=== PATIENT | female | born 1980 | race Caucasian/White ===

== ENCOUNTER 2020-02-22 20:32 | Emergency (ER) | payer BC, SELFPAY ==
--- NOTE | ~2020-02-22 | XR_ITS ---
EXAMINATION: XR hand RT min 3V EXAM DATE: 02/22/2020 21:25 INDICATION: Cat bite, 4th, 5th metacarpal pain and redness swelling. TECHNIQUE: Right hand frontal, lateral and oblique projections obtained and reviewed. There is no pr ior study for comparison. FINDINGS: Right metacarpal bones are unremarkable. There are no bony erosions identified. There are no acute fractures or dislocations identified. There is no subcutaneous gas. The soft tissue is unr emarkable. There are no radiopaque foreign bodies. IMPRESSION: 1. Unremarkable right hand exam. Reviewed, dictated and finalized at location A.
[2020-02-22 20:33] VITALS: BP 143/95; PULSE 77; RESP 18; TEMP 36.8; O2SAT 100
--- NOTE | 2020-02-22 21:19 | ED.WOUNDLAC ---
HPI - Wound/Laceration General Chief Complaint: Wound/Laceration Stated Complaint: right hand swelling after cat bite Time Seen by Provider: 02/22/20 20:54 Source: patient Mode of arrival: ambulatory Limitations: no limitations History of Present Illness HPI narrative: This is a 39 year old female that presents to the ER after a cat bite last night to the right hand. Reports redness, pain and swelling to the area. Denies fever. Related Data Home Medications Medication Instructions Recorded Confirmed cannabis #1 ea 02/13/20 02/13/20 ferrous sulfate 325 mg (65 mg 325 mg PO DAILY 02/13/20 02/13/20 iron) tablet fexofenadine 60 mg tablet 60 mg PO Q12H PRN 02/13/20 02/13/20 tofacitinib 5 mg tablet 5 mg PO .COMPLEX 02/13/20 02/13/20 Allergies Allergy/AdvReac Type Severity Reaction Status Date / Time peanut Allergy Mild Unverified 09/06/08 19:43 [place] Allergy Mild Uncoded 09/06/08 19:43 [place] Nut Allergy Mild Uncoded 09/06/08 19:43 SOY Allergy Mild Uncoded 09/06/08 19:43 [place] Allergy Mild Uncoded 09/06/08 19:43 Review of Systems Review of Systems: Narrative: CONSTITUTIONAL: Denies fever SKIN: Reports animal bite MUSCULOSKELETAL: Reports joint pain, and myalgia. 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 BMI 23.0-23.9, adult GERD (gastroesophageal reflux disease) History of migraine headaches Iron deficiency anemia, unspecified Mild intermittent asthma in adult without complication Nut allergy Seasonal allergies Ulcerative colitis Ulcerative colitis, left sided, chronic Surgical History Surgical History (Updated 07/31/19 @ 11:01 by Abdirahman Wren CMA) Hx of colonoscopy May 2019 Family History Family History (Updated 07/31/19 @ 11:05 by Abdirahman Wren CMA) Mother Hypertension Father Ulcerative colitis Liver failure Grandparent Hypertension Grandparent Heart failure Grandparent Diabetes mellitus Hypertension Grandparent Kidney disease Social History Social History Smoking status: Never smoker Alcohol intake: never Substance use: current Substance use type: marijuana Other substance usage details: Medical Cannabis Exam Narrative: Exam Narrative: GENERAL: Well-appearing, well-nourished, and in no acute distress. HEAD: Normocephalic, atraumatic. EYES: EOMI. EXTREMITIES: Normal range of motion. Mild edema and redness to the right 4th and 5th metacarpals, tender to palpation. Very small puncture wound to the area, without active bleeding. Normal sensation. Normal radial pulses SKIN: Warm, dry, no rash. NEURO: No focal deficits. Alert and oriented x3. PSYCH: Normal mood and affect Course Vital Signs Vital signs: Vital Signs Temperature 98.2 F 02/22/20 20:33 Pulse Rate 77 02/22/20 20:33 Respiratory Rate 18 02/22/20 20:33 Blood Pressure 143/95 H 02/22/20 20:33 Pulse Oximetry 100 02/22/20 20:33 Temperature 98.2 F 02/22/20 20:33 Pulse Rate 77 02/22/20 20:33 Respiratory Rate 18 02/22/20 20:33 Blood Pressure 143/95 H 02/22/20 20:33 Pulse Oximetry 100 02/22/20 20:33 MDM - Wound/Laceration MDM Narrative Medical decision making narrative: Patient presents to the ER for right hand pain after a cat bite last night. She is afebrile and nontoxic-appearing. Mild redness and swelling to the area. CBC is without leukocytosis. CRP is normal. Right hand x-rays without acute findings. Patient was updated on tetanus. She will be started on oral antibiotics. She is stable and felt appropriate for further outpatient evaluation. She was given warnings to return to the ER Lab Data Attestation: I reviewed the patient's lab results. Result diagrams: 02/22/20 22:09 02/22/20 22:09
[2020-02-22 22:17] LABS: Basophils Absolute Auto 0.1 K/mm3 (0.0-0.1); Basophils Percent Auto 0.5 % (0.2-1.2); Eosinophils Absolute Auto 0.4 K/mm3 (0-0.3); Eosinophils Percent Auto 3.8 % (0-4.4); Hematocrit 34.9 % (37.0-47.0); Hemoglobin 10.9 g/dL (12.0-15.0); Immature Granulocyte Absolute 0.03 K/mm3 (0.00-0.031); Immature Granulocyte Percent A 0.3 % (0-0.5); Lymphocytes Absolute Auto 2.41 K/mm3 (0.9-3.2); Lymphocytes Percent Auto 24.3 % (18.3-44.2); Mean Corpuscular HGB Conc 31.2 g/dl (32-36); Mean Corpuscular Hemoglobin 24.4 pg (26-34); Mean Corpuscular Volume 78.1 fl (80-100); Mean Platelet Volume 8.4 fl (7.4-10.4); Monocytes Absolute Auto 0.9 K/mm3 (0.1-0.6); Monocytes Percent Auto 8.9 % (2.6-8.5); Neutrophils Absolute Auto 6.2 K/mm3 (1.3-6.7); Neutrophils Percent Auto 62.2 % (45.5-73.1); Platelet Count Result 523 k/mm3 (150-375); Red Blood Count 4.47 M/mm3 (4.2-5.4); Red Cell Distribution Width 17.8 % (11.5-14.5); White Blood Count 9.9 K/mm3 (4.5-10.0)
[2020-02-22 22:32] LABS: Anion Gap 11 mmol/L (8-16); Blood Urea Nitrogen 9 mg/dL (7-17); CRP 0.7 mg/dL (<1.0); Calcium 9.6 mg/dL (8.4-10.2); Carbon Dioxide 25 mmol/L (22-30); Chloride 104 mmol/L (98-107); Estimated Glomerular Filt Rate > 60; Glucose 74 mg/dL (65-105); Potassium 3.4 mmol/L (3.4-5.0); Sodium 140 mmol/L (137-145)
[2020-02-22 22:41] LABS: Erythrocyte Sedimentation Rate 17 mm/hr (0-20)
[2020-02-22 23:00] VITALS: BP 122/78; PULSE 75; RESP 16; O2SAT 98
[2020-02-22] MEDS: TETANUS,DIPHTHERIA,AC PERTUSSIS ADULT (0.5 ML) BOOSTRIX IM (23:01)
== END 2020-02-22 23:05 | disposition home or self-care (01) ==
PROVIDERS: Physician Assistant; Emergency Provider Family Medicine; PCP Family Medicine
DX: S61.451A Open bite of right hand, initial encounter (principal); K21.9 Gastro-esophageal reflux disease without esophagitis; D50.9 Iron deficiency anemia, unspecified; J45.20 Mild intermittent asthma, uncomplicated; W55.01XA Bitten by cat, initial encounter; Z23 Encounter for immunization
CPT/HCPCS: 36415; 73130; 80048; 85025; 85652; 86140; 90471; 90714; 90715; 99283

== ENCOUNTER → 2021-06-02 10:32 | Outpatient (CLI) | payer BC, SELFPAY ==
[2021-06-02 19:53] LABS: SARS-CoV-2 RNA PCR Negative
== END ==
PROVIDERS: PCP Family Medicine; Visit Provider Family Medicine
DX: R68.89 Other general symptoms and signs (principal); Z20.822 Contact with and (suspected) exposure to COVID-19
CPT/HCPCS: C9803; U0003; U0005

== ENCOUNTER 2022-03-15 10:18 | Observation (INO) | payer BC, SELFPAY ==
--- NOTE | ~2022-03-15 | XR_ITS ---
EXAMINATION: XR hand LT min 3V DATE: 03/15/2022 11:50 INDICATION: Cat bite to left thumb and second metacarpal. TECHNIQUE: 3 views of left hand were obtained. COMPARISON: None. FINDINGS: Bone alignment is normal. No fracture. There is mild osteoarthritis of second and fifth dis debbie interphalangeal joints. IMPRESSION: 1. No fracture or radiopaque foreign body. Reviewed, dictated and finalized at location A.
[2022-03-15 10:25] VITALS: BP 138/99; PULSE 77; RESP 17; TEMP 36.4; O2SAT 100
--- NOTE | 2022-03-15 11:32 | ED.ANIMALBIT ---
HPI - Animal Bite General Chief Complaint: Animal Bite <JULIENNE Rudd Last Filed: 03/15/22 18:02> Stated Complaint: cat bite <JULIENNE Rudd Last Filed: 03/15/22 18:02> Time Seen by Provider: 03/15/22 11:03 <JULIENNE Rudd Last Filed: 03/15/22 18:02> Source: patient <JULIENNE Rudd Last Filed: 03/15/22 18:02> Mode of arrival: ambulatory <JULIENNE Rudd Last Filed: 03/15/22 18:02> Limitations: no limitations <JULIENNE Rudd Last Filed: 03/15/22 18:02> History of Present Illness HPI narrative: Patient is a 41 y/o female who presents to the ED with c/o cat bite to her left hand. Patient reports she was bit by her indoor house cat over her left thumb MCP joint Tuesday afternoon. She had a leftover prescription for her Augmentin and began this Tuesday night. She has had 4 doses thus far. Patient reports the pain, swelling, redness of her left hand/thumb has continued to worsen however. She does have difficulty moving her left thumb. She denies any fevers, nausea, vomiting. Tetanus status UTD. <JULIENNE Rudd Last Filed: 03/15/22 18:02> Related Data Home Medications: Home Medications Medication Instructions Recorded Confirmed cannabis #1 ea 02/13/20 03/15/22 ferrous sulfate 325 mg (65 mg 325 mg PO DAILY 02/13/20 03/15/22 iron) tablet fexofenadine 60 mg tablet (Idania 60 mg PO Q12H PRN allergy 02/13/20 03/15/22 Allergy) famotidine 20 mg tablet 20 mg PO BID 08/12/20 03/15/22 tofacitinib 5 mg tablet (Xeljanz) 10 mg PO BID 10/30/21 03/15/22 [id number]-Pc-xkvq-minerals 27 1 tablet PO DAILY 10/31/22 10/31/22 mg-0.4 mg tablet <Celi Vargas PA-C - Last Filed: 03/15/22 18:02> Allergies/Adverse Reactions: Allergies Allergy/AdvReac Type Severity Reaction Status Date / Time peanut Allergy Mild Anaphylaxis Verified 03/15/22 16:05 NSAIDS (Non-Steroidal Allergy Unknown Verified 03/15/22 16:05 Anti-Inflamma [place] Allergy Mild Anaphylaxis Uncoded 03/15/22 16:05 [place] Nut Allergy Mild Anaphylaxis Uncoded 03/15/22 16:05 SOY Allergy Mild Anaphylaxis Uncoded 03/15/22 16:05 [place] Allergy Mild Anaphylaxis Uncoded 03/15/22 16:05 <Celi Vargas PA-C - Last Filed: 03/15/22 18:02> Review of Systems Review of Systems: CONSTITUTIONAL: Denies fever, chills, or sweats. CARDIOVASCULAR: Denies chest pain. RESPIRATORY: Denies dyspnea. GASTROINTESTINAL: Denies nausea, vomiting. SKIN: Reports redness/swelling to the left thumb/hand. MUSCULOSKELETAL: Reports pain to left hand/left thumb. NEUROLOGIC: Denies tingling, numbness, or weakness. <Celi Vargas PA-C - Last Filed: 03/15/22 18:02> CONSTITUTIONAL: Denies night sweats. EYES: No eye pain ENT: Denies rhinorrhea CARDIOVASCULAR: Denies palpitations RESPIRATORY: Denies hemoptysis GASTROINTESTINAL: Denies hematemesis GENITOURINARY: Denies hematuria. SKIN: Denies rash MUSCULOSKELETAL: Denies myalgia. NEUROLOGIC: Denies weakness. 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
[2022-03-15 11:58] LABS: Basophils Absolute Auto 0.1 K/mm3 (0.0-0.1); Basophils Percent Auto 0.8 % (0.2-1.2); Eosinophils Absolute Auto 0.1 K/mm3 (0-0.3); Eosinophils Percent Auto 1.4 % (0-4.4); Hemoglobin 10.5 g/dL (12.0-15.0); Immature Granulocyte Absolute 0.02 K/mm3 (0.00-0.031); Immature Granulocyte Percent A 0.3 % (0-0.5); Lymphocytes Absolute Auto 1.86 K/mm3 (0.9-3.2); Lymphocytes Percent Auto 25.3 % (18.3-44.2); Mean Corpuscular HGB Conc 30.9 g/dl (32-36); Mean Corpuscular Hemoglobin 24.5 pg (26-34); Mean Corpuscular Volume 79.3 fl (80-100); Mean Platelet Volume 8.1 fl (7.4-10.4); Monocytes Absolute Auto 0.6 K/mm3 (0.1-0.6); Monocytes Percent Auto 8.3 % (2.6-8.5); Neutrophils Absolute Auto 4.7 K/mm3 (1.3-6.7); Neutrophils Percent Auto 63.9 % (45.5-73.1); Platelet Count Result 534 k/mm3 (150-375); Red Blood Count 4.29 M/mm3 (4.2-5.4); White Blood Count 7.4 K/mm3 (4.5-10.0)
[2022-03-15 12:10] LABS: Alanine Aminotransferase 16 U/L (6-35); Albumin Level 4.8 g/dL (3.5-5.1); Alkaline Phosphatase 70 U/L (38-126); Anion Gap 14 mmol/L (8-16); Aspartate Amino Transferase 25 U/L (14-36); Bilirubin,Total 0.2 mg/dL (0.2-1.3); Blood Urea Nitrogen 8 mg/dL (7-17); Calcium 9.3 mg/dL (8.4-10.2); Carbon Dioxide 25 mmol/L (22-30); Chloride 102 mmol/L (98-107); Estimated CRCL calculation 94 ml/min; Estimated Glomerular Filt Rate > 60; Glucose 89 mg/dL (65-110); Potassium 3.5 mmol/L (3.4-5.0); Sodium 141 mmol/L (137-145)
--- NOTE | 2022-03-15 13:01 | PC.NURSE ---
ERPA at bedside to discuss results and treatment plan with patient.
[2022-03-15 13:11] LABS: CRP 2.3 mg/dL (<1.0)
--- NOTE | 2022-03-15 13:17 | PC.NURSE ---
Pt unsure if she would like to be admitted. Pt would like to speak with her first. ERPA will go back and speak with patient soon for update on whether she will accept admission or leave AMA.
[2022-03-15] MEDS: AMPICILLIN SULB 3 GM/NS 100 ML 3 GM/100 ML VIAL IVPB ×3 (13:27→23:18)
[2022-03-15 13:53] LABS: Erythrocyte Sedimentation Rate 20 mm/hr (0-20)
--- NOTE | 2022-03-15 14:30 | PM.IMHP ---
H&P: HPI History of Present Illness Date/Time: 03/15/22 14:30 Chief Complaint: Left hand cat bite. Narrative: This is a very pleasant 41-year-old female with ulcerative colitis on Xeljanz who presented to the emergency department for evaluation of a cat bite to the left hand. Tuesday afternoon her indoor cat bit her on the base of the left thumb and did draw blood. She immediately washed the area with warm soapy water and applied Neosporin and a Band-Aid. She had Augmentin at home and she has taken 4 doses of that so far but unfortunately the area continues to become increasingly more swollen and red. She has difficulties bending the thumb due to the swelling and constant throbbing pain. She has perhaps some mild tingling but no overt numbness. She has not had fever, chills, or sweats and she also denies nausea and vomiting. She has not noticed red streaking up the arm or tender lymph nodes. Review of Systems Review of Systems: Twelve systems were reviewed and are negative except for as per HPI. 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 paroxysmal positional vertigo due to bilateral vestibular disorder Bilateral chronic knee pain Chronic eustachian tube dysfunction Gastro-esophageal reflux disease without esophagitis History of migraine headaches Iron deficiency anemia, unspecified Mild intermittent asthma in adult without complication Nut allergy Osteoarthritis of multiple joints Seasonal allergies Ulcerative colitis Surgical History Surgical History Hx of colonoscopy May 2019 Family History Family History Mother Hypertension Father Ulcerative colitis Liver failure Grandparent Hypertension Grandparent Heart failure Grandparent Diabetes mellitus Hypertension Grandparent Kidney disease Social History Social History Social History: Surrogate medical decision maker: Kev Bradford, spouse. Code status: Full code. Smoking status: Never smoker Alcohol intake: never Substance use: current Substance use type: marijuana Other substance usage details: Medical Cannabis Has the Lack of Transportation Kept You From Medical Appointments or From Getting Medications?: No Within the Past 12 Months, Were You Worried Whether Your Food Would Run Out Before You Got Money to Buy More?: Never True What is Your Housing Situation Today?: I Have Housing Are You Worried That in the Next 2 Months, You May Not Have Your Own Housing to Live In?: No Do You Have Trouble Paying Your Heating Or Electricity Bill?: No Do You Have Trouble Paying For Medicines?: No Are You Currently Unemployed and Looking for Work?: No Highest Level of Education Completed: High School Diploma/GED Do You Have Trouble With Childcare or the Care of a Family Member?: No Additional living arrangements comments: Lives in [place] with and 3 children. 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 [employer] Spiritual care concerns: No Meds Home Medications and Allergies Home Medications Medication Instructions Recorded Confirmed Type cannabis #1 ea 02/13/20 03/15/22 History ferrous sulfate 325 mg (65 mg 325 mg PO DAILY 02/13/20 03/15/22 History iron) tablet fexofenadine 60 mg tablet (Idania 60 mg PO Q12H PRN allergy 02/13/20 03/15/22 History Allergy) famotidine 20 mg tablet 20 mg PO BID 08/12/20 03/15/22 History albuterol sulfate 90 mcg/actuation 2 inh inhalation Q6H PRN shortness 03/30/21 03/15/22 Rx breath activated powder inhaler of breath or wheezing #1 ea tofacitinib 5 mg tablet (Xeljanz) 10 mg PO BID 10/30/21 03/15/22 History meclizine 25 mg tablet 25 mg PO TID PRN dizziness #90 tabs 11/10/21
[2022-03-15 15:13] VITALS: BP 144/101; PULSE 71; RESP 18; TEMP 37.2; O2SAT 100
[2022-03-15 15:19] LABS: SARS-CoV-2 RNA PCR Negative
--- NOTE | 2022-03-15 15:40 | ADMGEN ---
This patient, Leila Bradford, was admitted to 2 Medical Room 261-01. Patient/family oriented to hospital policies and general routines including ID bracelet, bed and alarms, visiting hours, pain management, procedures, bathroom and other care routines, personal items, smoking policy, room service/diet, and visiting hours. Information on how to activate the Rapid Response Team has been discussed. Patient/Family are encouraged to report perceived risks to care and to ask questions if they do not understand what they are told or what they should do.
[2022-03-15 16:00] VITALS: RESP 18; O2SAT 100
[2022-03-15 16:05] VITALS: BP 138/84; PULSE 70; RESP 18; TEMP 36.8; O2SAT 100
--- NOTE | 2022-03-15 19:34 | WPDCN ---
Assessment and Plan Assessment and plan (1) Cat bite of left hand with infection: Qualifiers: Encounter type: initial encounter Qualified Code(s): S61.452A - Open bite of left hand, initial encounter; L08.9 - Local infection of the skin and subcutaneous tissue, unspecified; W55.01XA - Bitten by cat, initial encounter Code(s): S61.452A - Open bite of left hand, initial encounter; L08.9 - Local infection of the skin and subcutaneous tissue, unspecified; W55.01XA - Bitten by cat, initial encounter Status: Acute (2) Immunocompromised state: Code(s): D84.9 - Immunodeficiency, unspecified Status: Acute Plan Continue IV Unasyn. Elevate the extremity above heart level. NPO tonight for possible I&D tomorrow if not satisfactorily resolving. Hospitalist to determine whether tofacitinib could be held until infectious issue is sufficiently under control to continue. HPI Data of Consult Date/Time: 03/15/22 19:34 Requesting Physician: Andreina Frank MD Primary Care Provider: Caio Kasper MD Consult Narrative Reason for consult: Cat bite to left thumb Narrative: Leila Bradford is a 41 year old female on tofacitinib for U.C. was bitten near the right 1st MPJ Tuesday by her own house cat. She started herself on Augmentin and had taken 4 doses prior to arriving at ER here today. C/O of swelling, pain to left thumb. Im not aware of lymphangitis. No leukocytosis or fever. C-RP 2.3. No drainage. With effort able to actively flex and extend MPJ though tender. She has been started on Unisyn. Review of Systems Review of Systems: CONSTITUTIONAL: Denies fever, chills, or sweats. CARDIOVASCULAR: Denies chest pain. RESPIRATORY: Denies dyspnea. GASTROINTESTINAL: Denies nausea, vomiting. SKIN: Reports redness/swelling to the left thumb/hand. MUSCULOSKELETAL: Reports pain to left hand/left thumb. NEUROLOGIC: Denies tingling, numbness, or weakness. 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 paroxysmal positional vertigo due to bilateral vestibular disorder Bilateral chronic knee pain Chronic eustachian tube dysfunction Gastro-esophageal reflux disease without esophagitis History of migraine headaches Iron deficiency anemia, unspecified Mild intermittent asthma in adult without complication Nut allergy Osteoarthritis of multiple joints Seasonal allergies Ulcerative colitis Surgical History Surgical History Hx of colonoscopy May 2019 Family History Family History Mother Hypertension Father Ulcerative colitis Liver failure Grandparent Hypertension Grandparent Heart failure Grandparent Diabetes mellitus Hypertension Grandparent Kidney disease Social History Social History Social History: Surrogate medical decision maker: Kev Dungfili, spouse. Code status: Full code. Smoking status: Never smoker Alcohol intake: never Substance use: current Substance use type: marijuana Other substance usage details: Medical Cannabis Has the Lack of Transportation Kept You From Medical Appointments or From Getting Medications?: No Within the Past 12 Months, Were You Worried Whether Your Food Would Run Out Before You Got Money to Buy More?: Never True What is Your Housing Situation Today?: I Have Housing Are You Worried That in the Next 2 Months, You May Not Have Your Own Housing to Live In?: No Do You Have Trouble Paying Your Heating Or Electricity Bill?: No Do You Have Trouble Paying For Medicines?: No Are You Currently Unemployed and Looking for Work?: No Highest Level of Education Completed: High School Di
[2022-03-15 22:00] VITALS: BP 130/79; PULSE 68; RESP 18; TEMP 36.6; O2SAT 98
[2022-03-16] MEDS: AMPICILLIN SULB 3 GM/NS 100 ML 3 GM/100 ML VIAL IVPB ×3 (05:20→17:46)
[2022-03-16 05:26] VITALS: BP 119/75; PULSE 70; RESP 18; TEMP 36.9; O2SAT 100
[2022-03-16 09:09] VITALS: BMI 23.9
[2022-03-16 09:10] VITALS: RESP 18; O2SAT 100
--- NOTE | 2022-03-16 09:44 | WPDPN ---
Progress Note: A&P Assessment and Plan (1) Cat bite of left hand with infection: Qualifiers: Encounter type: initial encounter Qualified Code(s): S61.452A - Open bite of left hand, initial encounter; L08.9 - Local infection of the skin and subcutaneous tissue, unspecified; W55.01XA - Bitten by cat, initial encounter Code(s): S61.452A - Open bite of left hand, initial encounter; L08.9 - Local infection of the skin and subcutaneous tissue, unspecified; W55.01XA - Bitten by cat, initial encounter Status: Acute Assessment and Plan: Markedly improved at Day 2 on Unisyn. Stop NPO. No plan to operate on the hand. Recommend continue Unasyn at least today. (2) Ulcerative colitis: Code(s): K51.90 - Ulcerative colitis, unspecified, without complications Status: Acute Subjective Date/time seen: 03/16/22 09:44 Interval history: Feeling better. Still cant bend it. Exam Narrative: Erythema nearly resolved. Swelling diminished. Tolerates 40* of passive ROM at MPJ with pain at 4/10. Able to keep hand elevated upon pillows. Objective Data Vital Signs Vital Signs: Vital Signs - 24 hr 03/15/22 10:25 03/15/22 15:13 03/15/22 16:05 Temperature 97.6 F 98.9 F 98.3 F Pulse Rate 77 71 70 Respiratory Rate 17 18 18 Blood Pressure 138/99 H 144/101 H 138/84 Pulse Oximetry 100 100 100 Oxygen Delivery Room Air 03/15/22 16:00 03/15/22 22:00 03/16/22 05:26 Temperature 97.9 F 98.4 F Pulse Rate 68 70 Respiratory Rate 18 18 18 Blood Pressure 130/79 119/75 Pulse Oximetry 100 98 100 Oxygen Delivery Room Air 03/16/22 09:10 Temperature Pulse Rate Respiratory Rate 18 Blood Pressure Pulse Oximetry 100 Oxygen Delivery Room Air Intake/Output Intake/Output: Intake & Output 03/13/22 03/14/22 03/15/22 03/16/22 23:59 23:59 23:59 23:59 Intake Total 1210 350 Balance 1210 350 Meds/Results Medications: Active Medications Generic Name Dose Route Start Last Admin Trade Name Freq PRN Reason Stop Dose Admin Acetaminophen 650 mg 03/15/22 19:48 Acetaminophen 325 Mg Tablet PO Q6H PRN Mild Pain (1-3) or Fever Albuterol 2 puff 03/15/22 20:05 Albuterol Sulfate (*Sp) Aerosol 1 Puff INHALATION Q6HRT PRN shortness of breath or wheezing Famotidine 20 mg 03/16/22 09:00 Famotidine 20 Mg Tablet PO Q12HR ZACH Ferrous Sulfate 324 mg 03/16/22 09:00 03/16/22 09:07 Ferrous Sulfate 324 Mg Tablet PO Not Given DAILY ZACH Ampicillin Sodium/Sulbactam Sodium 3 gm in 100 mls @ 200 mls/hr 03/15/22 19:00 03/16/22 05:50 Unasyn 3 Gm/Ns 100 Ml IVPB Infused Q6HR ZACH Infusion Loratadine 10 mg 03/15/22 19:50 Loratadine 10 Mg Tablet PO QAM PRN allergy Meclizine HCl 25 mg 03/15/22 19:50 Meclizine Hcl 25 Mg Tablet PO TID PRN dizziness Multivitamins/Calcium 1 tablet 03/16/22 09:00 03/16/22 09:07 Therapeutic Multivitamins/Minerals Tab (*Bkc) PO Not Given DAILY [facility] Radiology Results: ITS Impressions Hand X-Ray 03/15/22 11:53 IMPRESSION: 1. No fracture or radiopaque foreign body. Labs Labs: Laboratory Results - last 24 hr 03/15/22 03/15/22 03/15/22 11:46 11:46 11:46 WBC 7.4 RBC 4.29 Hgb 10.5 L Hct 34.0 L MCV 79.3 L MCH 24.5 L MCHC 30.9 L RDW 20.0 H Plt Count 534 H MPV 8.1 Immature Gran % (Auto) 0.3 Neut % (Auto) 63.9 Lymph % (Auto) 25.3 [place] % (Auto) 8.3 Eos % (Auto) 1.4 Baso % (Auto) 0.8 Lymph # (Auto) 1.86 [place] # (Auto) 0.6 Eos # (Auto) 0.1 Baso # (Auto) 0.1 Abs Immat Gran (auto) 0.02 Absolute Neuts (auto) 4.7 Absolute Nucleated RBC 0.0 Nucleated RBC % 0.0 ESR 20 Sodium 141 Potassium 3.5 Chloride 102 Carbon Dioxide 25 Anion Gap 14 BUN 8 Creatinine 0.60 L Estim Creat Clear Calc 94 Estimated GFR > 60 Glucose 89 Calcium 9.3 Total Bilirubin
[2022-03-16] MEDS: THERAPEUTIC MULTIVITAMINS/MINERALS TAB (*BKC) 1 TABLET PO (10:03)
[2022-03-16] MEDS: FAMOTIDINE 20 MG TABLET PO ×2 (10:04→20:37)
[2022-03-16] MEDS: FERROUS SULFATE 324 MG TABLET PO (10:04)
[2022-03-16 14:00] VITALS: BP 126/87; PULSE 87; RESP 20; TEMP 36.3; O2SAT 99
--- NOTE | 2022-03-16 14:21 | PM.IMPN ---
Progress Note: A&P Assessment and Plan (1) Cat bite of left hand with infection: Qualifiers: Encounter type: initial encounter Qualified Code(s): S61.452A - Open bite of left hand, initial encounter; L08.9 - Local infection of the skin and subcutaneous tissue, unspecified; W55.01XA - Bitten by cat, initial encounter Code(s): S61.452A - Open bite of left hand, initial encounter; L08.9 - Local infection of the skin and subcutaneous tissue, unspecified; W55.01XA - Bitten by cat, initial encounter Status: Acute Assessment and Plan: 03/16/2022 interval history, patient with open wound to her left hand after cat bites, was started on Unasyn Day2, patient is seen by Krishan Evans, plastic surgeon and plan was that will need I & D to clean the wound however after reexamine today the surgeon has decided that the wound is healing well and patient is able to flex and extends her 2-5 finger and having little difficulty with flexion and extension of the thumb, will continue Unasyn, will assess tomorrow and further recommendation to follow. (2) Iron deficiency anemia, unspecified: Qualifiers: Iron deficiency anemia type: unspecified iron deficiency Qualified Code(s): D50.9 - Iron deficiency anemia, unspecified Code(s): D50.9 - Iron deficiency anemia, unspecified Status: Acute (3) Immunocompromised state: Code(s): D84.9 - Immunodeficiency, unspecified Status: Acute (4) Ulcerative colitis: Code(s): K51.90 - Ulcerative colitis, unspecified, without complications Status: Acute Plan Patient presented to the emergency department today for evaluation of increasing redness and swelling of the left thumb after being bitten by her indoor cat on Tuesday by 4 doses of Augmentin. The wounds are closed and there is no drainage noted on exam. No lymphangitic streaking is appreciated. Given her immunocompromised state (she is on a DMARD) it was felt that she would benefit from IV antibiotics overnight and consultation with Dr. Wasserman and his input is greatly appreciated. She has chronic iron deficiency anemia which is stable. No acute issues with regards to ulcerative colitis. Her home medications will be reviewed and resumed as appropriate. Subjective Date/time seen: 03/16/22 14:22 HPI-Narrative: This is a very pleasant 41-year-old female with ulcerative colitis on Xeljanz who presented to the emergency department for evaluation of a cat bite to the left hand. Tuesday afternoon her indoor cat bit her on the base of the left thumb and did draw blood. She immediately washed the area with warm soapy water and applied Neosporin and a Band-Aid. She had Augmentin at home and she has taken 4 doses of that so far but unfortunately the area continues to become increasingly more swollen and red. She has difficulties bending the thumb due to the swelling and constant throbbing pain. She has perhaps some mild tingling but no overt numbness. She has not had fever, chills, or sweats and she also denies nausea and vomiting. She has not noticed red streaking up the arm or tender lymph nodes. 03/16/2022 interval history, patient with open wound to her left hand after cat bites, was started on Unasyn Day2, patient is seen by Krishan Evans, plastic surgeon and plan was that will need I & D to clean the wound however after reexamine today the surgeon has decided that the wound is healing well and patient is able to flex and extends her 2-5 finger and having little difficulty with flexion and extension of the thumb, will continue Unasyn, will assess tomorrow and further recommendation to follow. Review of Systems Review of Systems: CONSTITUTIONAL: Denies fever, chills, or sweats. CARDIOVASCULAR: Denies chest pain. RESPIRATORY: Denies dyspnea. GASTROINTESTINAL: Denies nausea, vomiting. SKIN: Reports redness/swelling to the left thumb/hand. MUSCULOSKELETAL: Reports pain to left hand/left thumb. NEUROLOGIC: Denies tingling
[2022-03-16 20:00] VITALS: PULSE 87; RESP 20; O2SAT 99
[2022-03-16 21:10] VITALS: BP 145/83; PULSE 66; RESP 18; TEMP 36.1; O2SAT 97
[2022-03-17] MEDS: AMPICILLIN SULB 3 GM/NS 100 ML 3 GM/100 ML VIAL IVPB ×2 (00:17→08:09)
[2022-03-17 04:48] VITALS: BP 119/69; PULSE 2; RESP 18; TEMP 36.2; O2SAT 98
[2022-03-17] MEDS: FERROUS SULFATE 324 MG TABLET PO (08:05)
[2022-03-17] MEDS: FAMOTIDINE 20 MG TABLET PO (08:05)
[2022-03-17] MEDS: THERAPEUTIC MULTIVITAMINS/MINERALS TAB (*BKC) 1 TABLET PO (08:05)
--- NOTE | 2022-03-17 08:08 | PC.NURSE ---
Spoke with pharmacy to clarify if it is okay to hang 0600 ampicillin as it was not hung by second shift supervisor. Pharmacy says to hang 0600 dose now and then hang 1200 dose at 1300.
--- NOTE | 2022-03-17 08:59 | WPDPN ---
Progress Note: A&P Assessment and Plan (1) Cat bite of left hand with infection: Qualifiers: Encounter type: initial encounter Qualified Code(s): S61.452A - Open bite of left hand, initial encounter; L08.9 - Local infection of the skin and subcutaneous tissue, unspecified; W55.01XA - Bitten by cat, initial encounter Code(s): S61.452A - Open bite of left hand, initial encounter; L08.9 - Local infection of the skin and subcutaneous tissue, unspecified; W55.01XA - Bitten by cat, initial encounter Status: Acute Assessment and Plan: Ok for discharge on Augmentin 7 days. Be sure she has my office phone number. F/U with Dr. Wasserman upon return from her vacation. (2) Immunocompromised state: Code(s): D84.9 - Immunodeficiency, unspecified Status: Acute Assessment and Plan: Per hospitalist. Plan Appears she had cellulitis from cat bite, but no septic joint. Capsule will be stiff for a week or so. Would do well now on oral Augmentin for 7 days. Plan to f/u with Dr Wasserman in 10-14 days, after she returns from her vacation in the [facility]. She may call if any problems arise. Time Spent With Patient Time with patient: less than 15 minutes Subjective Date/time seen: 03/17/22 08:59 Interval history: Feels better. Infected cat bite to left 1st MPJ area. Progressing well with IV Unasyn, day 3. Exam Narrative: Feels better. Can actively flex MPJ better than yesterday, but still a little stiff. Tolerates IP AROM and PROM. Tolerates MP PROM with little pain. Objective Data Vital Signs Vital Signs: Vital Signs - 24 hr 03/16/22 09:10 03/16/22 14:00 03/16/22 20:00 Temperature 97.3 F L Pulse Rate 87 87 Respiratory Rate 18 20 20 Blood Pressure 126/87 Pulse Oximetry 100 99 99 Oxygen Delivery Room Air Room Air 03/16/22 21:10 03/17/22 04:48 03/17/22 08:00 Temperature 97.0 F L 97.2 F L Pulse Rate 66 2 L Respiratory Rate 18 18 Blood Pressure 145/83 H 119/69 Pulse Oximetry 97 98 Oxygen Delivery Room Air Intake/Output Intake/Output: Intake & Output 03/14/22 03/15/22 03/16/22 03/17/22 23:59 23:59 23:59 23:59 Intake Total 1210 2590 390 Balance 1210 2590 390 Meds/Results Medications: Active Medications Generic Name Dose Route Start Last Admin Trade Name Freq PRN Reason Stop Dose Admin Acetaminophen 650 mg 03/15/22 19:48 Acetaminophen 325 Mg Tablet PO Q6H PRN Mild Pain (1-3) or Fever Albuterol 2 puff 03/15/22 20:05 Albuterol Sulfate (*Sp) Aerosol 1 Puff INHALATION Q6HRT PRN shortness of breath or wheezing Famotidine 20 mg 03/16/22 09:00 03/17/22 08:05 Famotidine 20 Mg Tablet PO 20 mg Q12HR ZACH Administration Ferrous Sulfate 324 mg 03/16/22 09:00 03/17/22 08:05 Ferrous Sulfate 324 Mg Tablet PO 324 mg DAILY ZACH Administration Ampicillin Sodium/Sulbactam Sodium 3 gm in 100 mls @ 200 mls/hr 03/15/22 19:00 03/17/22 08:09 Unasyn 3 Gm/Ns 100 Ml IVPB 200 mls/hr Q6HR ZACH Administration Loratadine 10 mg 03/15/22 19:50 Loratadine 10 Mg Tablet PO QAM PRN allergy Meclizine HCl 25 mg 03/15/22 19:50 Meclizine Hcl 25 Mg Tablet PO TID PRN dizziness Multivitamins/Calcium 1 tablet 03/16/22 09:00 03/17/22 08:05 Therapeutic Multivitamins/Minerals Tab (*Bkc) PO 1 tablet DAILY ZACH Administration Radiology Results: ITS Impressions Hand X-Ray 03/15/22 11:53 IMPRESSION: 1. No fracture or radiopaque foreign body.
--- NOTE | 2022-03-17 09:28 | PM.DS ---
DS: Admitting Diagnosis Discharge Date 03/17/2022 Admitting Diagnosis Left hand cat bite. DS: Discharge Diagnosis Discharge Diagnosis (1) Cat bite of left hand with infection: Qualifiers: Encounter type: initial encounter Qualified Code(s): S61.452A - Open bite of left hand, initial encounter; L08.9 - Local infection of the skin and subcutaneous tissue, unspecified; W55.01XA - Bitten by cat, initial encounter Code(s): S61.452A - Open bite of left hand, initial encounter; L08.9 - Local infection of the skin and subcutaneous tissue, unspecified; W55.01XA - Bitten by cat, initial encounter Status: Acute Assessment and Plan: 03/16/2022 interval history, patient with open wound to her left hand after cat bites, was started on Unasyn Day2, patient is seen by Krishan Evans, plastic surgeon and plan was that will need I & D to clean the wound however after reexamine today the surgeon has decided that the wound is healing well and patient is able to flex and extends her 2-5 finger and having little difficulty with flexion and extension of the thumb, will continue Unasyn, will assess tomorrow and further recommendation to follow. (2) Iron deficiency anemia, unspecified: Qualifiers: Iron deficiency anemia type: unspecified iron deficiency Qualified Code(s): D50.9 - Iron deficiency anemia, unspecified Code(s): D50.9 - Iron deficiency anemia, unspecified Status: Acute (3) Immunocompromised state: Code(s): D84.9 - Immunodeficiency, unspecified Status: Acute (4) Ulcerative colitis: Code(s): K51.90 - Ulcerative colitis, unspecified, without complications Status: Acute Plan Patient presented to the emergency department today for evaluation of increasing redness and swelling of the left thumb after being bitten by her indoor cat on Tuesday by 4 doses of Augmentin. The wounds are closed and there is no drainage noted on exam. No lymphangitic streaking is appreciated. Given her immunocompromised state (she is on a DMARD) it was felt that she would benefit from IV antibiotics overnight and consultation with Dr. Wasserman and his input is greatly appreciated. She has chronic iron deficiency anemia which is stable. No acute issues with regards to ulcerative colitis. Her home medications will be reviewed and resumed as appropriate. DS: Summary Hospital Course Reason for hospitalization: Left hand cat bite. Narrative: This is a very pleasant 41-year-old female with ulcerative colitis on Xeljanz who presented to the emergency department for evaluation of a cat bite to the left hand. Tuesday afternoon her indoor cat bit her on the base of the left thumb and did draw blood. She immediately washed the area with warm soapy water and applied Neosporin and a Band-Aid. She had Augmentin at home and she has taken 4 doses of that so far but unfortunately the area continues to become increasingly more swollen and red. She has difficulties bending the thumb due to the swelling and constant throbbing pain. She has perhaps some mild tingling but no overt numbness. She has not had fever, chills, or sweats and she also denies nausea and vomiting. She has not noticed red streaking up the arm or tender lymph nodes. Hospital Course: patient with open wound to her left hand after cat bites, was started on Unasyn Day2, patient is seen by Krishan Evans, plastic surgeon and plan was that will need I & D to clean the wound however after reexamine today the surgeon has decided that the wound is healing well and patient is able to flex and extends her 2-5 finger and having little difficulty with flexion and extension of the thumb, will continue Unasyn, will assess tomorrow and further recommendation to follow. ? today patient states the pain redness and swelling has improved in her hand, able to flex and extend her fingers and at wrist, patient seen by her surgeon today and agrees patient clinical symptoms have improved and can
--- NOTE | 2022-03-17 11:59 | PC.NURSE ---
On 03/17/22, the student, [Coco Lindsay], provided care and completed [facility] documentation on this patient. I have reviewed the student's documentation and agree with the findings.
== END 2022-03-17 12:40 | disposition home or self-care (01) ==
LOC: ANHED 14:10 → ANH2MED 15:48
PROVIDERS: Physician Assistant; Admitting Provider Family Medicine; Emergency Provider Emergency Medicine; PCP Family Medicine; Visit Provider Family Medicine
DX: S61.452A Open bite of left hand, initial encounter (principal); W55.01XA Bitten by cat, initial encounter; L08.9 Local infection of the skin and subcutaneous tissue, unspecified; D50.9 Iron deficiency anemia, unspecified; D84.9 Immunodeficiency, unspecified; K51.90 Ulcerative colitis, unspecified, without complications; H81.13 Benign paroxysmal vertigo, bilateral; H69.90 Unspecified Eustachian tube disorder, unspecified ear; K21.9 Gastro-esophageal reflux disease without esophagitis; Z20.822 Contact with and (suspected) exposure to COVID-19; J45.909 Unspecified asthma, uncomplicated; M15.9 Polyosteoarthritis, unspecified; Z82.49 Family history of ischemic heart disease and other diseases of the circulatory system; Z83.430 Family history of elevated lipoprotein(a); Z83.79 Family history of other diseases of the digestive system; Z83.3 Family history of diabetes mellitus; Z84.1 Family history of disorders of kidney and ureter; F12.90 Cannabis use, unspecified, uncomplicated; Z79.52 Long term (current) use of systemic steroids; Z79.899 Other long term (current) drug therapy
CPT/HCPCS: 36415; 73130; 80053; 85025; 85652; 86140; 96365; 96366; 99285; A9270; G0378; J0295; U0003; U0005

== ENCOUNTER → 2022-07-28 16:07 | Outpatient (CLI) | payer BC, SELFPAY ==
--- NOTE | ~2022-07-28 | MM_ITS ---
EXAMINATION: MM screening meghann BI w mike HISTORY: Screening mammogram TECHNIQUE: Craniocaudal and mediolateral oblique 3-D tomosynthesis images were obtained and synthetic 2-D images were generated. CAD analysis was submitted and interpreted. COMPARISON: No prior mammogram is available for comparison at this institution. BREAST PARENCHYMAL COMPOSITION: There are scattered areas of fibroglandular density. FINDINGS: There is no evidence of suspicious mass, calcification, or architectural distortion to sugg est malignancy in either breast. There has been no suspicious interval change. IMPRESSION: 1. No mammographic evidence of malignancy. 2. Recommend routine screening mammography in one year. BI-RADS Category 1: Negative Reviewed, dictated and finalized at location A.
== END ==
PROVIDERS: PCP Advanced Practice Midwife; Visit Provider Advanced Practice Midwife
DX: Z12.31 Encounter for screening mammogram for malignant neoplasm of breast (principal)
CPT/HCPCS: 77063; 77067

== ENCOUNTER 2022-12-02 14:41 | Emergency (ER) | payer BC, SELFPAY ==
[2022-12-02 14:47] VITALS: BP 133/87; PULSE 82; RESP 18; TEMP 36.7; O2SAT 100
--- NOTE | 2022-12-02 15:06 | ED.EAR ---
HPI - Ear Problem General Chief complaint: Ear Stated complaint: Rt Ear Irritation,Sore Throat Source: patient Mode of arrival: ambulatory Limitations: no limitations History of Present Illness HPI Narrative: 42 y/o female presented for c/o right ear pain for 4 days. Ear feels full and pain radiates to the top of the head. 2 days ago she started taking cefdinir which she had leftover from previous prescription, and reports improvement in symptoms today. Also taking Idania and Flonase per usual for seasonal allergies, also takes famotidine. Denies ear drainage, dizziness, n/v/d/f/c. Patient has history of severe vertigo, but has not had any symptoms yet. Also has UC and is taking Xeljanz. MD Complaint: ear pain Related Data Home Medications Medication Instructions Recorded Confirmed cannabis #1 ea 02/13/20 12/02/22 ferrous sulfate 325 mg (65 mg 325 mg PO DAILY 02/13/20 12/02/22 iron) tablet tofacitinib 5 mg tablet (Xeljanz) 10 mg PO BID 10/30/21 12/02/22 lhatmafxutcd-Ml-swyr-minerals 27 1 tablet PO DAILY 03/15/22 12/02/22 mg-0.4 mg tablet famotidine 20 mg tablet 20 mg PO QHS 05/24/22 12/02/22 fexofenadine 180 mg tablet 180 mg PO DAILY PRN Allergy 05/24/22 12/02/22 (Idania Allergy) Allergies Allergy/AdvReac Type Severity Reaction Status Date / Time peanut Allergy Mild Anaphylaxis Verified 12/02/22 14:59 NSAIDS (Non-Steroidal Allergy Unknown Verified 12/02/22 14:59 Anti-Inflamma [place] Allergy Mild Anaphylaxis Uncoded 03/15/22 16:05 [place] Nut Allergy Mild Anaphylaxis Uncoded 03/15/22 16:05 SOY Allergy Mild Anaphylaxis Uncoded 03/15/22 16:05 [place] Allergy Mild Anaphylaxis Uncoded 03/15/22 16:05 Review of Systems Review of Systems: CONSTITUTIONAL: Denies malaise, chills, or fever. EYES: Denies visual changes, redness, or discharge. ENT: Denies rhinorrhea, congestion, sinus pain, and sore throat. Reports ear pain CARDIOVASCULAR: Denies chest pain, palpitations, or edema. RESPIRATORY: Denies cough or dyspnea. GASTROINTESTINAL: Denies abdominal pain, nausea, vomiting, diarrhea SKIN: Denies rash or itching. MUSCULOSKELETAL: Denies myalgia. NEUROLOGIC: Denies headache. 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 COVID test on 06/02/2021 was negative Gastro-esophageal reflux disease without esophagitis History of migraine headaches Hyperlipidemia LDL goal <130 total cholesterol 269 with HDL excellent at 71, triglycerides 61, LDL 183 on 05/21/2022. Iron deficiency anemia, unspecified (~07/31/19) iron 37 with 8% saturation with hemoglobin 12.2 on 07/31/2019. Hemoglobin 10.5 on 03/15/2022. Hemoglobin 12.9 with iron 76 with 18% saturation and ferritin 16 with vitamin B12 619 on 05/21/2022. Mild intermittent asthma in adult without complication Nut allergy Osteoarthritis of multiple joints Otalgia of left ear (11/09/21) Otitis media Seasonal allergies Ulcerative colitis (~2007) panulcerative colitis diagnosed in 2007 and followed by GI at [facility]. sedimentation rate of 6 with CRP 1.6 . Surgical History Surgical History Hx of colonoscopy May 2019 Family History Family History Mother Hypertension Father Ulcerative colitis Liver failure Grandparent Hypertension Grandparent Heart failure Grandparen
== END 2022-12-02 15:23 | disposition home or self-care (01) ==
PROVIDERS: Emergency Provider Nurse Practitioner Family; PCP Family Medicine
DX: H92.01 Otalgia, right ear (principal); K21.9 Gastro-esophageal reflux disease without esophagitis; E78.5 Hyperlipidemia, unspecified; J45.909 Unspecified asthma, uncomplicated; M15.9 Polyosteoarthritis, unspecified; D50.9 Iron deficiency anemia, unspecified; Z86.16 Personal history of COVID-19
CPT/HCPCS: 99213; G0463

== ENCOUNTER 2024-04-07 10:04 | Outpatient (CLI) | payer BC, SELFPAY ==
--- NOTE | ~2024-04-07 | MM_ITS ---
EXAMINATION: MM screening meghann BI w mike HISTORY: Screening mammogram TECHNIQUE: Craniocaudal and mediolateral oblique 3-D tomosynthesis images were obtained and synthetic 2-D images were generated. CAD analysis was submitted and interpreted. COMPARISON: 07/28/2022 bilateral screening mammogram BREAST PARENCHYMAL COMPOSITION: There are scattered areas of fibroglandular density. FINDINGS: There is no evidence of suspicious mass, calcification, or architectural distortion to sugg est malignancy in either breast. There has been no suspicious interval change. IMPRESSION: 1. No mammographic evidence of malignancy. 2. Recommend routine screening mammography in one year. BI-RADS Category 1: Negative Reviewed, dictated and finalized at location A. 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
== END 2024-04-07 10:05 | disposition home or self-care (01) ==
LOC: MICIMG 10:05
PROVIDERS: PCP Family Medicine; Visit Provider Nurse Practitioner
DX: Z12.31 Encounter for screening mammogram for malignant neoplasm of breast (principal)
CPT/HCPCS: 77063; 77067

== ENCOUNTER 2025-02-18 15:29 | Outpatient (CLI) | payer BC, SELFPAY ==
--- NOTE | 2025-02-18 15:30 | ECG_ITS ---
Test Date: 2025-02-18 15:50:34 Measurements Intervals [place] Rate: 63 P: 50 OR: 150 QRS: 24 QRSD: 99 T: 51 QT: 388 QTc: 400 Interpretive Statements SINUS RHYTHM POSSIBLE LEFT ATRIAL ENLARGEMENT DELAYED PRECORDIAL R/S TRANSITION MINIMAL Q WAVES- HIGH LATERAL LEADS BASELINE ARTIFACT- I, II, III, AVR, AVL, AVF, V1-V6 BORDERLINE ECG No previous ECG available for comparison Electronically Signed On 02-18-2025 16:17:09 CDT by Librado Parkinson D.O.
--- OUTSIDE RECORDS SUMMARY | 2025-02-18 15:59 | XMS_ITS | Clinical Summary ---
Author Organization [facility] Address [address] [place] [address] Care Team Providers Care Sisal Operator Name Role Phone Caio Kasper MD Primary Care Provider [phone] [facility],non-owned Affiliates and Associated Physician Practices is amultiple site organization consisting of ambulatory clinics and hospital sitesin [place], [place], [place] and [place]. This disclosure is being madepursuant to the Care Everywhere program and may not contain all information available regarding this patient. Last updated 18.[facility] Allergies Active Allergy Reactions Criticality Noted Date Comments Avocado Itching,Nausea and/o r Vomiting 09/14/2017 Isoflavones Itching,Rash Medium 09/17/2015 Peanut-Derived Itching 07/17/2008 Also allergic to walnuts, brazil nuts, and walnuts Soy Rash,Itching Medium 07/17/2008 Tree Nuts Urticaria Medium 08/29/2019 Walnuts, brazil nuts, pecans Wheat Bran Nausea and/or Vomiting 09/14/2017 Medications * Be aware that medications may not be up to date on this document. Alwaysverify current medications with the patient. fexofenadine (ROHINI) 180 MG tablet Take 1 (one) tablet by mouth once daily as needed Active Probiotic Product (PROBIOTIC PO) Take by mouth once daily Active Dronabinol (MEDICAL MARIJUANA) at bedtime Active Multiple Vitamins-Mineral s (WOMENS MULTIVITAMIN PO) Take by mouth once daily Active famotidine (PEPCID) 20 MG tablet Take 1 (one) tablet by mouth once daily Active PROAIR RESPICLICK 108 (90 Base) MCG/ACT INL 2 PFS PO Q 6 H PRF SOB OR WHZ 07/31/19 20 Active FERROUS GLUCONATE PO Take 1 tablet by mouth as needed (uses during period) Active VITAMIN D PO Take by mouth once daily Active meclizine (Antivert) 25 MG tablet Take 1 (one) tablet by mouth 3 times daily as needed for Dizziness Active budesonide (Entocort EC) [address] capsuleIndicatio ns:Ulcerative pancolitis (HCC) Take 3 (three) capsules by mouth once daily for 21 days, THEN 2 (two) capsules once daily for 21 days, THEN 1 (one) capsule once daily for 21 days. 126 capsule 06/07/19 25 Active Additional Information Patient not taking.Reported on 07/11/2024 risankizumab-rza a (Skyrizi) 360 MG/2.4ML SOCTIndications: Ulcerative pancolitis (HCC) Inject 2.4 mL subcutaneously Every 8 Weeks 2.4 mL 5 08/09/19 25 Active pantoprazole EC (Protonix) 40 MG tablet Take 1 (one) tablet by mouth once daily 90 tablet 1 10/30/19 25 Active Additional Information Patient taking differently:40 mg OralPRN, Reported on 11/21/2024 amLODIPine (Norvasc) 2.5 MG tabletIndication s:Essential hypertension Take 1 (one) tablet by mouth once daily 45 tablet 11/22/19 25 Active Active Problems Problem Noted Date Diagnosed Date Ulcerative colitis 08/14/2017 Overview (01/10/2018): Overview: Gi Sx 2004 Dx in 2006 treated initially with asacol/prednisone 2008 started remicade. Self DCd 10/2013 Colonoscopy 03/2012 - normal ileum, inflammation in the rectum, rest of colon was mildly erythematous. Multiple polyps in the entire colon. Path: c/w inflammatory polyps, no dysplasia. Normal TI path, random colon path normal. Chronic mild inflammation in rectum. /[id number] ESR 29 02/2015 - Established care with Dr. Bull. Claudio. Currently only on Lialda 1.2g/d. Increased to 4.8g/d 03/2015 -colonoscopy - pancolitis. TI normal. HbSag/Quant Gold neg. 05/2015 - started entvyio (missed 2 and 6 week dose, but got 0, 4, 4 week doses instead). 09/2015 - no clinical response. Adding Uceris. 06/2016 - colonoscopy with may score 2 L sided colitis with extensive pseudopolyposis 10/2016 - Vedo level 8.6, no antibody. Increased entyvio to q6 weeks. Goal level>10. Clinically doing great. Regional enteritis 06/23/2012 Overview (02/13/2015): Other and unspecified noninf ectious gastroenteritis and colitis(558.9) 05/03/2012 Encounters Date Type Department Care Team Description 02/04/2025 Travel 11/21/2024 9:30 AM CDT Office Visit [facility] [address] [place] [address] Regis Thrasher MD Ulcerative pancolitis (HCC) (Primary Dx); Essential hypertension 11/21/2024 Travel from Last 3 Months Immunizations Immunization Administration Dates Next Due INFLUENZA VACCINE, QUADR. (F LUZONE; FLULAVAL; FLUARIX; AFLURIA QUADRIVALENT; 6MO+), 0.5 ML (IIV4) 2023 PPD 11/10/2008 Family History Medical History Relation Name Comments Alcohol abuse Father 52 Cirrhosis Father 52 Ulcerative Colitis Father 52 Diabetes Maternal Aunt Asthma Mother 61 Hypertension Mother 61 Asthma Sister 29 Relation Name Status Comments Brother 34 Alive Daughter 9 Alive Father 52 Maternal Aunt Mother 61 Alive Sister 29 Alive Son 1 15 Alive Son 2 11 Alive Social History Tobacco Use Types Packs/Day Years Used Date Smoking Tobacco: Never Smokeless Tobacco: Never Tobacco Cessation:Counseling Given: Not Answered Alcohol Use Standard Drinks/Week Comments Not Currently 0 (1 standard drink = 0.6 oz pur e alcohol) maybe once a year AUDIT-C Answer Date Recorded Q1: How often do you have a drink containing alc ohol? 2-4 times a month 06/30/2022 Average Number of Drinks Not on file 023 Frequency of Binge Drinking Not on file 06/16 Comments No Sex and Gender Information Value Date Recorded Sex Assigned at Not on file Legal Sex Female 5:30 AM FLAME BURNER Gender Identity Not on file Sexual Orientation Not on file Last Filed Vital Signs Vital Sign Reading Time Taken Comments Blood Pressure 154/97 11/21/2024 10:01 AM CDT Pulse 66 11/21/2024 9:59 AM CDT Temperature 36.8 C (98.2 F) 11/21/2024 9:59 AM CDT Respiratory Rate 18 10/05/2024 11:41 AM CDT Oxygen Saturation 100% 11/21/2024 9:59 AM CDT Inhaled Oxygen Concentration - - Weight 68.9 kg (152 lb) 11/21/2024 9:59 AM CDT Height 170.2 cm (5' 7) 07/11/2024 9:53 AM FLAME BURNER Body Mass Index 23.81 07/11/2024 9:53 AM FLAME BURNER Plan of Treatment Upcoming Encounters Date Type Department Care Team (Late st Contact Info) Description 05/28/2025 9:30 AM FLAME BURNER Office Visit [facility] - Dermatology [address] [place] [phone] Dave Carson MD [address] [place] [address] 05/29/2025 10:00 AM FLAME BURNER Office Visit [facility] [address] [place] [address] Regis Thrasher MD [address] [place] [address] Health Maintenance Due Date Last Done Comments MAMMOGRAM 1980 HIV SCREENING 1995 HEPATITIS C SCREENING 04/16/1998 DTAP/TDAP/TD VACCINES (1 - Tdap) 1999 HEPATITIS B VACCINE (1 of 3 - 19+ 3-dose series) 1999 HPV VACCINE (1 - 3-dose SCDM series) 2007 DEPRESSION SCREENING 05/16/2024 COVID-19 VACCINE ( - season) 2025 INFLUENZA VACCINE (#1) 2025 2023 PAP SMEAR 04/03/2027 04/03/2024, 03/16, 08/11/2022, Additional history exists LIPID TESTING 01/09/2029 01/10/2024, 12/15, 06/11/2023, Additional history exists ZOSTER VACCINE (1 of 2) 2030 HIB VACCINE Aged Out No longer eligi ble based on patient's age to complete this topic MENINGOCOCCAL (Group B) VACCINE SHARED DECISION-MAKING Aged Out No longer eligible based on patient's age to complete this topic MENINGOCOCCAL GROUPS A/C/Y/W VACCINE Aged Out No longer eligible based on patient's age to complete this topic PNEUMOCOCCAL VACCINE Aged Out No long er eligible based on patient's age to complete this topic Goals Goal Patient Goal Type Associated Problems Recent Progress Patient-Stated? Author Medication Management General On track( 025 10:00 AM CDT) Sheridan Stock, RN Note: Expected end date: ongoing Interventions: Take all medications as prescribed Procedures Procedure Name Priority Date/Time Associated Diagnosis Comments LIPID PROFILE 01/10/2024 8:53 AM CDT from Last 3 Months or Most Recently Relevant to Health Maintenance Results * (ABNORMAL) LIPID PROFILE (01/10/2024 8:53 AM CDT) Cholesterol 225(H) <200 mg/dL [facility] HDL Cholesterol 65 > OR = 50 mg/dL [facility] Triglycerides 65 <150 mg/dL [facility] LDL Calculated 144(H) mg/dL (calc) [facility] Comment: Reference range: <100 Desirable range <100 mg/dL for primary prevention; <70 mg/dL for patients with CHD or diabetic patients with > or = 2 CHD risk factors. LDL-C is now calculated using the Cammie calculation, which is a validated novel method providing better accuracy than the Friedewald equation in the estimation of LDL-C. Dante MARCH et al. ANGELLA. 2013;310(19): 6644-1875 (http://education.Evolv.[employer]/faq/CNL189) CHOL/HDLC RATIO 3.5 <5.0 (calc) [facility] Non HDL Cholesterol 160(H) <130 mg/dL (calc) [facility] Comment: For patients with diabetes plus 1 major ASCVD risk factor, treating to a non-HDL-C goal of <100 mg/dL (LDL-C of <70 mg/dL) is considered a therapeutic option. Test Performed at: [email or web address] [id number] JANESSA MCDONALD MD 01/10/2024 8:53 AM CDT 01/10/2024 8:53 AM CDT Indira Brown CHANGE CONTROL ANALYST-[facility] - CHEMISTRY ORDERABLES Final Result Performing Organization Address City/State/[facility] Co de Phone Number [address] [address] from Last 3 Months or Most Recently Relevant to Health Maintenance Insurance [facility] Address: [facility] [id number] [place] [address] [facility] Advance Directives Documents on File Type Date Recorded Patient Health Advocate Expl anation Adv Directive/Living Will/POA 04/28/2010 10:47 PM * Full Code (Latest Code Status on File) Date Activated Date Inactivated Comments 07/17/2008 9:44 PM 07/21/2008 3:44 AM Care Teams Sisal Operator Relationship Specialty Start Date End Date Caio Kasper MD [address] [place] [address] PCP - General Family Medicine 08/29/19
--- OUTSIDE RECORDS SUMMARY | 2025-02-18 15:59 | XMS_ITS | Data Portability ---
Author Organization [facility] Address [address] [place] [address] Care Team Providers Care Director Supply Name Role Phone MENDY GRUBBS Primary Care Provider [phone] Assessment Encounter Date Assessment Date Assessment LastModified by Organization Details LastModified Time 04/03/2024 04/03/2024 Annual gynecological exam performed. Patient will come back in a year unless there are new symptoms. [email or web address] Not available 04/03/2024 11:48:45 Plan of Treatment Reminders Order Date Submit Date Provider Last Modified By Organization Details Last Modified Time Details Appointments SURG MISC 2024 09:30A Krys LARA MD Not available Not available Not available SURG POST OP 2024 09:30A Krys LARA MD Not available Not available Not available Lab [email or web address], serum 2024 025 [facility] (Lab), [address], [place], [address], 01/21/2025 17:07:35 17-hydrox yprogestDONG morse, serum 2024 025 [facility] (Lab), [address] [place], [address], 01/17/2025 05:59:31 dhea-sulf ate, serum 2024 025 [facility] (Lab), [address], [place], [address], 01/17/2025 05:59:29 estradiol , serum 2024 025 [facility] (Lab), [address], [place], [address], 01/17/2025 05:59:29 FSH (follicle -stimulat ing hormone), serum 2024 025 [facility] (Lab), [address], [place], [address], 01/17/2025 05:59:31 HbA1c (hemoglob in A1c), blood 2024 025 [facility] (Lab), [address], [place], [address], 01/17/2025 05:59:31 lh (luteiniz ing hormone), serum 2024 025 [facility] (Lab), [address], [place], [address], 01/17/2025 05:59:30 progester one, serum 2024 025 [facility] (Lab), [address] [place], [address], 01/17/2025 05:59:30 prolactin , serum 2024 025 [facility] (Lab), [address] [place], [address], 01/17/2025 05:59:30 shbg (sex hormone-b inding globulin) , serum 2024 025 [facility] (Lab), [address] [place], [address], 01/17/2025 05:59:29 TSH, serum or plasma 2024 025 [facility] (Lab), [address] [place], [address], 01/17/2025 05:59:29 testoster one free/test osterone total, ratio, serum 2024 025 [facility] (Lab), [address], [place], [address], 01/17/2025 05:59:31 test, urine 2024 025 [facility], [facility] [address], [place], [address], 12/31/2024 14:04:59 dhea-sulf ate, serum 2023 024 [facility] (Lab), [address], [place], [address], 04/07/2024 13:33:48 hormone panel, serum or plasma 2023 024 [facility] (Lab), [address], [place], [address], 04/07/2024 13:33:48 progester one, serum 2023 024 [facility] (Lab), [address], [place], [address], 04/07/2024 13:33:47 prolactin , serum 2023 024 [facility] (Lab), [address], [place], [address], 04/07/2024 13:33:47 shbg (sex hormone-b inding globulin) , serum 2023 024 [facility] (Lab), [address], [place], [address], 04/07/2024 13:33:48 TSH, serum or plasma 2023 024 [facility] (Lab), [address], [place], [address], 04/07/2024 13:33:48 testoster one free/test osterone total, ratio, serum 2023 024 [facility] (Lab), [address], [place], [address], 04/07/2024 13:33:49 Referral None recorded. Procedures None recorded. Surgeries salpingec deyvi, laparosco pic (SURG) 2024 025 [email or web address] [facility], [address], [place], [address], 01/17/2025 14:50:32 oophorect neville (SURG) 2024 025 [email or web address] [facility], [address], [place], [address], 01/17/2025 14:52:18 hysterosc opy, surgical, with biopsy of endometri um and/or polypecto my (SURG) 2024 025 [email or web address] [facility], [address], [place], [address], 01/17/2025 14:48:06 hysterosc opy, with endometri al ablation (SURG) [address], [address], [place], [address], 01/17/2025 14:47:12 Imaging US, pelvis 2024 025 [email or web address], [place], [address], 01/03/2025 23:26:41 US, transvagi nal 2024 025 [email or web address], [place], [address], 01/03/2025 23:26:41 US, pelvis 2023 024 [email or web address] [place], [address], [place], [address], 04/04/2024 21:16:39 US, transvagi nal [email or web address], [address], [place], [address], 04/04/2024 21:16:39 US, pelvis, complete 2023 024 [facility], [address], [place], [address], 10/07/2024 05:01:06 MAMMO, screening , digital, bilateral 2023 024 [facility], [address], [place], [address], 04/09/2024 07:39:03 Medication Orders spironola ctone 100 mg tablet 2024 025 [id number], [address], [place], [place], [id number], 01/17/2025 11:56:53 Patient TargetsNo targets recorded. Patient InstructionsNo instructions recorded. Reason for Referral None Reported. Results Created Date Observation Date Name Description Value Unit Range Abnormal Flag Note LastModifiedBy Organization Detail LastModifiedTime 04/03/20 24 04/03/2024 PROLA CTIN prolactin, total 7.02 NG/mL 4.79-2 3.30 This assay was perfo rmed using [employer] ratio n reage nts and test kits. Value s obtai jerri with other assay metho ds or kits canno t be used inter luz eably . Not Available [facility] (Lab) [address], [place], [address], 04/07/2024 13:33:47 04/03/20 24 04/03/2024 PROGE STERO NE progesterone 17.30 NG/mL This assay was perfo rmed using [employer] ratio n reage nts and test kits. Value s obtai jerri with other assay metho ds or kits canno t be used inter [facility] . Femal e Proge stero ne Range s: Folli cular phase 0.06- 0.89 ng/mL Ovula tion phase 0.12- 12.00 ng/mL Lutea l phase 1.83- 23.90 ng/mL Postm enopa usal <0.05 -0.13 ng/mL Healt hy Pregn ant Women 1st Trime ster 11.0- 44.30 2nd Trime ster 25.40 -83.3 0 3rd Trime ster 58.70 -214. 00 Not Available [facility] (Lab) [address] [place], [address], 04/07/2024 13:33:47 04/03/20 24 04/03/2024 FSH, LH, ESTRA DIOL estradiol 141.0 pg/mL This assay was perfo rmed using [employer] ratio n reage nts and test kits. Value s obtai jerri with other assay metho ds or kits canno t be used inter [facility] . Femal e Estra diol Range s: Folli cular phase 12.4- 233 pg/mL Ovula tion phase 41.0- 398 pg/mL Lutea l phase 22.3- 341 pg/mL Postm enopa usal <5-13 8 pg/mL Healt hy Pregn ant Women 1st Trime ster 154-3 243 pg/mL 2nd Trime ster 1561- 40392 pg/mL 3rd Trime ster 8525- >3000 0 pg/mL Not Available [facility] (Lab) [address] [place], [address], 04/07/2024 13:33:48 04/03/20 24 04/03/2024 FSH, LH, ESTRA DIOL FSH 1.1 mIU/m L This assay was perfo rmed using [employer] ratio n reage nts and test kits. Value s obtai jerri with other assay metho ds or kits canno t be used inter [facility] . Femal es Folli cular : 3.5-1 2.5 mIU/m L Ovula tion: 4.7-2 1.5 mIU/m L Lutea l: 1.7-7 .7 mIU/m L Postm enopa use: 25.8- 134.8 mIU/m L Not Available [facility] (Lab) [address] [facility], [place], [address], 04/07/2024 13:33:48 04/03/20 24 04/03/2024 FSH, LH, ESTRA DIOL LH 1.7 mIU/m L This assay was perfo rmed using [employer] ratio n reage nts and test kits. Value s obtai jerri with other assay metho ds or kits canno t be used inter [facility] . Femal es Mid-F ollic ular: 2.4-1 2.6 mIU/m L Mid-C ycle: 14.0- 95.6 mIU/m L Mid-L uteal : 1.0-1 1.4 mIU/m L Postm enopa use: 7.7-5 8.5 mIU/m L Not Available [facility] (Lab) [address] [facility], [place], [address], 04/07/2024 13:33:48 04/03/20 24 04/03/2024 DHEA SULFA TE DHEA-sulfate 270 ug/dL Femal e Range s Age(y ) Range (ug/d L) 10-15 34-28 0 15-20 65-36 8 20-25 148-4 07 25-35 99-34 0 35-45 61-33 7 45-55 35-25 6 55-65 19-20 5 65-75 9-246 > 75 12-15 4 Not Available [facility] (Lab) [address] [facility], [place], [address], 04/07/2024 13:33:48 04/03/20 24 04/03/2024 TSH, REFLE X FREE T4 TSH 2.79 uIU/m L 0.30-5 .33 Not Available [facility] (Lab) [address] [facility], [place], [address], 04/07/2024 13:33:48 04/03/20 24 04/03/2024 HUMAN SEX HORMO NE PEDRO NG GLOBU CHELSEA sex hormone binding globulin 76.5 nmole s/L 18.2-1 35.5 Not Available [facility] (Lab) [address] [facility], [place], [address], 04/07/2024 13:33:48 04/03/20 24 04/03/2024 TESTO STERO NE, FREE( DIALY SIS) AND TOTAL (LC/M S/MS) testosterone , total 38 NG/dL 2-45 For addit ional infor arcenio silveira e refer to http: //[facility] melany bob.que stdia gnost ics.c om/fa q/ Total Testo stero neLCM SMSFA Q165 (This link is being provi ded for infor darek kumar/ educa jasbir l purpo ses only. ) This test was devel oped and its catrina tical perfo rmanc e meghann cteri stics have been deter mined by [employer] ostcale s [place]. It has not been clear ed or appro zelda by the U.S. Food and Drug Admin istra tion. This assay has been valid ated pursu ant to the CLIA regul ation s and is used for clini jaleesa purpo ses. Not Available [facility] (Lab) [address] [facility], [place], [address], 04/07/2024 13:33:49 04/03/20 24 04/03/2024 TESTO STERO NE, FREE( DIALY SIS) AND TOTAL (LC/M S/MS) testosterone , free 2.7 pg/mL 0.1-6. 4 This test was devel oped and its catrina tical perfo rmanc e meghann cteri stics have been deter mined by [employer] ostic s Thanh ls [facility] [place]. It has not been clear ed or appro zelda by the U.S. Food and Drug Admin istra tion. This assay has been valid ated pursu ant to the CLIA regul ation s and is used for clini jaleesa purpo ses. Perfo rming Organ izati on Infor matio n: Site ID: AMD Name: [facility] marcelino Law ls Insti tute Addre ss: [id number] [facility] [employer] [place], [place] Direc tor: Chey Washington MD PhD Not Available [facility] (Lab) [address] [facility], [place], [address], 04/07/2024 13:33:49 04/03/20 24 04/03/2024 IMAGE GUIDE D PAP AND HPV REGAR DLESS image guided Pap, HPV regardless of Pap result SEE RESULT S BELOW CASE REPOR T: Cytol ogy Gynec ologi jaleesa Repor t Case: [id number] Autho aelxy lazar Provi rosemary: Maria Luisa Jeffers, MANAGER ATHLETICS Colle cted: 04/03 1305 Order ing Locat ion: [place] Path[facility] log[facility] Recei zelda: 04/04 0826 First Scree n: Izzy Meyer, CT Rescr een: Marisa Poole Speci men: Candiilan jha Pap - Image d, Cervi x STATE MENT OF ADEQU ACY: Satis facto ry for evalu ation Trans forma tion zone compo nent prese nt ----- ----- ----- ----- ----- ----- ----- ----- ----- ----- ----- ----- ----- ----- ----- ----- ----- ---- FINAL DIAGN OSIS: Negat brayan for Intra epith elial Hair bob or Aneta jasso (NIL) . Elect bharat thomas d by Marisa Poole on 04/13 at 2:21 PM ----- ----- ----- ----- ----- ----- ----- ----- ----- ----- ----- ----- ----- ----- ----- ----- ----- ---- HPV RESUL TS: HPV mRNA E6/E7 : No HPV mRNA Detec luiza NOTE: This high risk HPV mRNA assay detec ts fourt een high- risk HPV types (16, 18, 31, 33, 35, 39, 45, 51, 52, 56, 58, 59, 66, 68) witho ut diffe renti ation . COMME NT: This speci men was revie wed by a Cytot echno logis t and/o r Patho logis t (as indic ated in this repor t) after evalu ation using the Thinp rep Imagi ng Syste m. CLINI JALEESA INFOR MATIO N: Menst rual Statu s: LMP (if appli cable ): Clini jaleesa Histo ry/Pr eviou s Pap: Type of Neopl jayne (if appli cable ): Signi fican t Clini jaleesa Findi ngs: Other Histo ry: Hormo shyanne (if appli cable ): PAP EDUCA JASBIR L NOTE: The Pap Test is a scree yudelka test with an inher ent false negat brayan rate. Liqui d-bas ed sampl ing may decre ase, but will not elimi rachna, false negat brayan resul ts. A negat brayan resul t does not precl ude the prese nce and/o r devel opmen t of disea se, since the prese nce of abnor mal cells in the sampl e depen ds on the locat ion of the lesio n and sampl ing techn ique. Becky nued regul ar scree yudelka is the best metho d of cance r preve ntion . If repor luiza cytol ogic findi ng do not corre late with physi jaleesa and/o r histo rical findi ngs, [facility] er inves tigat ion is recom sylvia d, as clini tatiana sanon nted. Not Available [facility] (Lab) [address] [facility], [place], [address], 04/13/2024 15:25:09 01/01/20 25 12/31/2024 TSH, REFLE X FREE T4 TSH 4.11 uIU/m L 0.30-5 .33 Not Available [facility] (Lab) [address] [facility], [place], [address], 01/17/2025 05:59:28 01/01/20 25 12/31/2024 HUMAN SEX HORMO NE PEDRO NG GLOBU CHELSEA sex hormone binding globulin 83.8 nmole s/L 18.2-1 35.5 Not Available [facility] (Lab) [address] [facility], [place], [address], 01/17/2025 05:59:29 01/01/20 25 12/31/2024 DHEA SULFA TE DHEA-sulfate 268 ug/dL Femal e Range s Age(y ) Range (ug/d L) 10-15 34-28 0 15-20 65-36 8 20-25 148-4 07 25-35 99-34 0 35-45 61-33 7 45-55 35-25 6 55-65 19-20 5 65-75 9-246 > 75 12-15 4 Not Available [facility] (Lab) [address] [facility], [place], [address], 01/17/2025 05:59:29 01/01/20 25 12/31/2024 ESTRA DIOL estradiol 58.9 pg/mL This assay was perfo rmed using [employer] ratio n reage nts and test kits. Value s obtai jerri with other assay metho ds or kits canno t be used inter luz eably . Femal e Estra diol Range s: Folli cular phase 12.4- 233 pg/mL Ovula tion phase 41.0- 398 pg/mL Lutea l phase 22.3- 341 pg/mL Postm enopa usal <5-13 8 pg/mL Healt hy Pregn ant Women 1st Trime ster 154-3 243 pg/mL 2nd Trime ster 1561- 06092 pg/mL 3rd Trime ster 8525- >3000 0 pg/mL Not Available [facility] (Lab) [address] [place], [address], 01/17/2025 05:59:29 01/01/20 25 12/31/2024 PROGE STERO NE progesterone 0.42 NG/mL This assay was perfo rmed using [employer] Cor[employer] ratio n reage nts and test kits. Value s obtai jerri with other assay metho ds or kits canno t be used inter [facility] . Femal e Proge stero ne Range s: Folli cular phase 0.06- 0.89 ng/mL Ovula tion phase 0.12- 12.00 ng/mL Lutea l phase 1.83- 23.90 ng/mL Postm enopa usal <0.05 -0.13 ng/mL Healt hy Pregn ant Women 1st Trime ster 11.0- 44.30 2nd Trime ster 25.40 -83.3 0 3rd Trime ster 58.70 -214. 00 Not Available [facility] (Lab) [address] [place], [address], 01/17/2025 05:59:30 01/01/2012/31/2024 PROLA CTIN prolactin, total 7.94 NG/mL 4.79-2 3.30 This assay was perfo rmed using [employer] Cor[employer] ratio n reage nts and test kits. Value s obtai jerri with other assay metho ds or kits canno t be used inter [facility] . Not Available [facility] (Lab) [address] [place], [address], 01/17/2025 05:59:30 01/01/20 25 12/31/2024 LH (LUTE NIZIN G HORMO NE) LH 29.3 mIU/m L This assay was perfo rmed using [employer] ratio n reage nts and test kits. Value s obtai jerri with other assay metho ds or kits canno t be used inter [facility] . Femal es Mid-F ollic ular: 2.4-1 2.6 mIU/m L Mid-C ycle: 14.0- 95.6 mIU/m L Mid-L uteal : 1.0-1 1.4 mIU/m L Postm enopa use: 7.7-5 8.5 mIU/m L Not Available [facility] (Lab) [address] [place], [address], 01/17/2025 05:59:30 01/01/2012/31/2024 FSH FSH 6.6 mIU/m L This assay was perfo rmed using [employer] ratio n reage nts and test kits. Value s obtai jerri with other assay metho ds or kits canno t be used inter luz eably . Femal es Folli cular : 3.5-1 2.5 mIU/m L Ovula tion: 4.7-2 1.5 mIU/m L Lutea l: 1.7-7 .7 mIU/m L Postm enopa use: 25.8- 134.8 mIU/m L Not Available [facility] (Lab) [address], [place], [address], 01/17/2025 05:59:31 01/01/2012/31/2024 HEMOG LOBIN A1C hemoglobin A1C 5.5 % 4.0-5. 6 The Ameri can Diabe rach Assoc iatio n recom mends that a prima ry goal of thera py marquez sutherland be a HBA1C of < 7% and that physi cians shoul d reeva luate the treat ment regim en in patie nts with HBA1C value s consi stent ly > 8%. <5.7% Berna l 5.7 - 6.4% Incre ased risk for diabe rach >=6.5 % Diagn ostic of diabe rach <7.0% Goal of thera py >8.0% Actio n sugge sted Not Available [facility] (Lab) [address] , [place], [address], 01/17/2025 05:59:31 01/01/2012/31/2024 TESTO STERO NE, FREE( DIALY SIS) AND TOTAL (LC/M S/MS) testosterone , total 57 NG/dL 2-45 high For addit ional arcenio pillai e refer to http: //yokasta bob.que stdia gnost ics.c om/fa q/ Total Testo stero neLCM SMSFA Q165 (This link is being provi ded for skipr pumacharisse nal/ educa jasbir l purpo ses only. ) This test was devel oped and its catrina tical perfo rmanc e meghann cteri stics have been deter mined by [employer] s [address] [place]. It has not been clear ed or appro zelda by the U.S. Food and Drug Admin istra tion. This assay has been valid ated pursu ant to the CLIA regul ation s and is used for clini jaleesa purpo ses. Not Available [facility] (Lab) [address] [facility], [place], [address], 01/17/2025 05:59:31 01/01/20 25 12/31/2024 TESTO STERO NE, FREE( DIALY SIS) AND TOTAL (LC/M S/MS) testosterone , free 3.8 pg/mL 0.1-6. 4 This test was devel oped and its catrina tical perfo rmanc e meghann cteri stics have been deter mined by [employer] marcelino s Thanh ls [facility] [place]. It has not been clear ed or appro zelda by the U.S. Food and Drug Admin istra tion. This assay has been valid ated pursu ant to the CLIA regul ation s and is used for clini jaleesa purpo ses. Perfo rming Organ izati on [facility] bartholomewcharisse n: Site ID: AMD Name: Jenn Hans[employer] ls Insti wil Addre ss: [id number] [email or web address] [place], [place] Direc tor: Chey Washington MD PhD Not Available [facility] (Lab) [address] [place], [address], 01/17/2025 05:59:31 01/01/20 25 12/31/2024 17-OH PROGE STERO NE 17-hydroxypr ogesterone, lc/MS/MS 42 NG/dL Adult Femal e Refer ence Range s for 17-Hy droxy proge stero ne: Pre-M enopa usal Mid Folli cular : 23-10 2 ng/dL Pre-M enopa usal Surge : 67-34 9 ng/dL Pre-M enopa usal Mid Lutea l: 139-4 31 ng/dL Postm enopa usal Phase : < or = 45 ng/dL Pregn luz marina: First Trime ster: 78-45 7 ng/dL Secon d Trime ster: 90-35 7 ng/dL Third Trime ster: 144-5 78 ng/dL This test was devel oped and its catrina tical perfo rmanc e meghann cteri stics have been deter mined by [employer] marcelino s. It has not been clear ed or appro zelda by the FDA. This assay has been valid ated pursu ant to the CLIA regul ation s and is used for clini jaleesa purpo ses. Perfo rming Organ izati on Infor matio n: Site ID: [id number] Name: [employer] marcelino lozada/Barrie aguirre [address] [place] , Addre ss: [id number] [facility] [place] [phone] Direc tor: Abril bianchi MD,Ph D,RINA Not Available [facility] (Lab) [address], [place], [address], 01/17/2025 05:59:31 01/01/20 25 12/31/2024 pregn luz marina test, urine HCG negati ve Not Available [place] [address], [place], [address], 12/31/2024 14:04:51 01/18/20 25 01/17/2025 OVA 1 scan result See Viktoria sutherland Result Not Available [facility] (Lab) [address], [place], [address], 01/24/2025 09:48:13 04/04/20 24 04/04/2024 US, pelvi s No observ ation record ed. [email or web address] [place] [address], [place], [address], 04/04/2024 18:06:37 04/04/20 24 04/04/2024 US, trans vagin al No observ ation record ed. [email or web address] [place] [address], [place], [address], 04/04/2024 18:06:45 04/04/20 24 04/04/2024 US, pelvi s No observ ation record ed. [email or web address], [place], [address], 04/18/2024 15:05:22 04/09/20 24 04/07/2024 MAMMO , scree yudelka, digit al, bilat eral No observ ation record ed. [facility] [address], [place], [address], 04/10/2024 11:00:46 01/04/20 25 01/03/2025 US, pelvi s No observ ation record ed. [email or web address], [place], [address], 01/03/2025 14:28:53 01/04/20 25 01/03/2025 US, pelvi s No observ ation record ed. [facility] [address], [place], [address], 01/03/2025 14:05:13 01/04/20 25 01/03/2025 US, trans vagin al No observ ation record ed. [facility] [address], [place], [address], 01/03/2025 14:05:22 01/04/20 25 01/03/2025 US, pelvi s No observ ation record ed. [address], [place], [address], 01/17/2025 12:33:51 Result Notes None recorded. Problems Name Problem SNOMED Code Status Onset Date Resolution Date Notes Provider Name and Address Organization Details Recorded Time Adult health examinat ion Completed 201407/15/2021 ROUTINE MEDICAL EXAM;Pierce rded Elsewhere : No Locati on: [facility] So urce: EHR Chron ic: N Practic e ID: [id number] Bill able Time: 11:15:00 AM Shantal huffman [facility] 2 14:30:20 Speciali zed medical examinat ion Completed 201407/15/2021 Gynecolog ical Examinati on;Record ed Elsewhere : No Locati on: [facility] So urce: EHR Chron ic: N Practic e ID: [id number] Bill able Time: 11:15:00 AM Shantal huffman [facility] 2 14:30:27 Screenin g for malignan t neoplasm of cervix Completed 201407/15/2021 Pap Smear;Pra ctice ID: [id number] Shantal huffman [facility] 2 14:30:17 Finding of regulari ty of menstrua l cycle Completed 201507/15/2021 Irregular bleeding; Recorded Elsewhere : No Locati on: [facility] So urce: EHR Chron ic: N Practic e ID: [id number] Bill able Time: 03:30:00 PM Shantal huffman [facility] 2 14:30:19 Procedur e by method Completed 201507/15/2021 Encounter for other general counselin g and advice on contracep tion;Pierce rded Elsewhere : No Locati on: [facility] So urce: EHR Chron ic: N Practic e ID: [id number] Bill able Time: 02:15:00 PM Shantal huffman [facility] 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 [address] 14:30:[address] Concept Completed 201507/15/2021 Encntr for general adult medical exam w/o abnormal findings; Recorded Elsewhere : No Locati on: [facility] So urce: EHR Chron ic: N Practic e ID: [id number] Bill able Time: 02:15:00 PM Shantal Mosquera armida [facility] 2 14:30:22 Colitis [id number] Active 2023 Barbara Abdi [facility] 4 11:50:05 Problem Notes None recorded. Procedures Surgical History Date Name Laterality Status Provider Name and Address Organization Details Recorded Time 04/07/20 24 Date of Last Mammogram completed [facility] 12/31/2024 12:32:19 04/03/20 24 Date of Last Pap Smear completed Barbara Abdi [facility] 04/03/2024 11:50:37 06/18/19 24 Colonoscopy completed Barbaracarlos Abdi [facility] 04/03/2024 11:51:15 06/16/19 24 Date of Last Colonoscopy completed [facility] 12/31/2024 12:32:19 06/16/19 24 completed [facility] 12/31/2024 12:32:19 06/30/19 23 Colonoscopy completed [facility] 08/11/2022 16:54:15 05/16/19 18 Colonoscopy completed [facility] 08/11/2022 16:54:09 05/16/19 15 Colonoscopy completed [facility] 08/11/2022 16:53:56 05/16/19 13 Colonoscopy completed [facility] 08/11/2022 16:53:53 05/16/19 11 Colonoscopy completed [facility] 08/11/2022 16:53:49 05/16/19 08 extraction of wisdom tooth completed [facility] 08/11/2022 16:54:41 05/16/19 07 Colonoscopy completed [facility] 08/11/2022 16:53:40 Imaging Results None recorded. Procedure Notes None recorded. Medical Equipment None Reported. Allergies Allergen ID Allergen Name Allergen Category Reaction Reaction Severity Criticality Documentation Date Start Date Code Code System Note Provider Name and Address Organization Details Recorded Time 20539 peanut allergeni c extract food,medi cation Not available Not available Not available 05/02/2020 96631 8 RxNorm Shantal Mosquera [facility] 2 14:29:25 15289 almond oil food,medi cation Not available Not available Not available 05/02/2020 88809 38 RxNorm Shantal Mosquera [facility] 2 14:29:21 61900 soybean preparati on environme nt,food,m edication Not available Not available Not available 05/02/2020 62552 5 RxNorm Shantal Mosquera [facility] 2 14:29:31 33370 walnut allergeni c extract food Not available Not available Not available 05/02/2020 38493 0 RxNorm Shantal huffman, [facility] 2 14:29:32 43049 avocado allergeni c extract food Not available Not available Not available 05/02/2020 31048 2 RxNorm Shantal huffman, [facility] 2 14:29:23 38532 wheat preparati on food,medi cation Not available Not available Not available 05/02/2020 08989 52 RxNorm Shantal Mosquera [facility], [facility] 2 14:29:34 Medications Name Sig Start Date Stop Date Status Note LastModified by Organization Details LastModified Time multivita min tablet 07/15 completed Prescrib ed Elsewher e: Yes Loca tion: [facility] M odify By: tony Menard r DateTime : 09/18/19 15 11:15:00 AM Not Available Not Available Not Available prednison e 10 mg tablet 04/03 completed Not Available Not Available Not Available azithromy to 250 mg tablet 04/03 completed Not Available Not Available Not Available metoprolo l succinate ER 50 mg tablet,ex tended release 24 hr Take 1 tablet every day by oral route. active Not Available Not Available No t Available spironola ctone 100 mg tablet TAKE 1 TABLET BY MOUTH EVERY DAY active Not Available Not Available No t Available Idania 60 mg tablet take 1 tablet by oral route 2 times every day 2021 active Not Available Not Available Not Avai lable Zantac 150 mg tablet take 1 tablet by oral route 2 times every day 07/15 completed Prescrib ed Elsewher e: Yes Loca tion: [facility] M odify By: tony Menard r DateTime : 09/18/19 15 11:15:00 AM Not Available Not Available Not Available famotidin e 20 mg tablet TAKE 1 TABLET BY MOUTH TWICE DAILY active Not Available Not Available No t Available meclizine 25 mg tablet TAKE 1 TABLET BY MOUTH THREE TIMES DAILY NEEDED FOR DIZZINES S 01/17 completed Not Available Not Available Not Available Vitamin C 100 mg tablet 09/14 completed Prescrib ed Elsewher e: Yes Loca tion: [facility]hs talaver[facility] odify By: tony Menard r DateTime : 09/18/19 15 11:15:00 AM Not Available Not Available Not Available pantopraz ole 40 mg tablet,de layed release TAKE 1 TABLET BY MOUTH EVERY DAY 12/31 completed Not Available Not Available Not Available budesonid e DR - ER 3 mg capsule,d elayed,ex tended release TAKE 2 CAPSULES BY MOUTH DAILY FOR 21 DAYS THEN TAKE 1 CAPSULE BY MOUTH DAILY FOR 21 DAYS 01/17 completed Not Available Not Available Not Available cefdinir 300 mg capsule TAKE 1 CAPSULE BY MOUTH EVERY 12 HOURS 08/11 completed Not Available Not Available Not Available amoxicill in 500 mg-potass ium clavulana te 125 mg tablet TAKE 1 TABLET BY MOUTH EVERY 12 HOURS 08/11 completed Not Available Not Available Not Available Pepcid active Not Available Not Availa ble Not Available Lialda 1.2 gram tablet,de layed release take 2 tablet by oral route every day with a meal 08/11 completed Not Available Not Available Not Available Gavilyte- C 240 gram-22.7 2 gram-6.72 gram-5.84 gram oral solution 04/03 completed Not Available Not Available Not Available GaviLyte- G 236 gram-22.7 4 gram-6.74 gram-5.86 gram oral solution DRINK 1/2 OF THE BOWEL PREPARAT ION BY MOUTH AT 6 PM THE NIGHT BEFORE TEST. FINISH THE PREPARAT ION AT 4 AM THE MORNING OF COLONOSC OPY 08/11 completed Not Available Not Available Not Available B12 5,000 mcg-100 mcg sublingua l lozenge 09/14 completed Prescrib ed Elsewher e: Yes Loca tion: Rakesh talavera [facility] M odify By: tony Menard r DateTime : 09/18/19 15 11:15:00 AM Not Available Not Available Not Available Probiotic 10 billion cell capsule 07/15 completed Prescrib ed Elsewher e: Yes Loca tion: Rakesh talavera [facility] odify By: tony Menard r DateTime : 09/18/19 15 11:15:00 AM Not Available Not Available Not Available budesonid e DR-ER 9 mg tablet,de layed and extended release TAKE 1 TABLET BY MOUTH EVERY MORNING 04/03 completed Not Available Not Available Not Available ProAir RespiClic k 90 mcg/actua tion breath activated INHALE 2 PUFFS BY MOUTH EVERY 6 HOURS NEEDED FOR SHORTNES S OF BREATH OR WHEEZING active Not Available Not Available No t Available Xeljanz 10 mg tablet 12/31 completed Not Available Not Available Not Available Skyrizi 360 mg/2.4 mL (150 mg/mL) subcutane ous wearable injector active Not Available Not Available Not Available Vitals Date Recorded Body height Body mass index (BMI) Body weight Systolic And Diastolic Provider Name and Address Organization Details Last Updated DateTime 12/31/2024 165.1 cm 25.5 kg/m2 41815.63 g 136/88 mm[Hg] Salma Tiwari [facility] 12/31/2024 12:31:49 Date Recorded Body height Body mass index (BMI) Body weight Systolic And Diastolic Provider Name and Address Organization Details Last Updated DateTime 01/17/2025 165.1 cm 25.1 kg/m2 79406.45 g 159/102 mm[Hg] Madison Plaza [facility] 01/17/2025 11:17:48 Date Recorded Body height Body mass index (BMI) Body weight Systolic And Diastolic Systolic And Diastolic Provider Name and Address Organization Details Last Updated DateTime 04/03/2024 165.1 cm 25.8 kg/m2 64354.82 g 143/93 mm[Hg] 130/88 mm[Hg] Barbara Abdi [facility] 11:49:22 Social History Question Answer Notes LastModified by Organizat ion Details LastModified Time Tobacco Smoking Status Never Smoker Shantal huffman, [facility] 07/15/2021 14:40:10 Are You Blind Or Do You Have Difficulty Seeing? No Information n ot available 08/11/2022 What Is Your Level Of Caffeine Consumption? Moderate [email or web address] Information not available 12/31/2024 How Much Tobacco Do You Chew? None [email or web address] Information not available 12/31/2024 In The 14 Days Before Symptom Onset, Have You Had Close Contact With A Laboratory-confirm ed COVID-19 While That Case Was Ill? No [email or web address] Information n ot available 08/11/2022 In The 14 Days Before Symptom Onset, Have You Had Close Contact With A Person Who Is Under Investigation For COVID-19 While That Person Was Ill? No [email or web address] Information not available 08/11/2022 Have You Been To An Area Known To Be High Risk For COVID-19? No [email or web address] Information not available 08/11/2022 Are You Deaf Or Do You Have Serious Difficulty Hearing? No [email or web address] Information not available 08/11/2022 What Type Of Diet Are You Following? SPECIFIC [email or web address] Information n ot available 12/31/2024 What Is The Highest Grade Or Level Of School You Have Completed Or The Highest Degree You Have Received? [id number] Information not available 12/31/2024 Are There Any Guns Present In Your Home? No [email or web address] Information not available 12/31/2024 Have You Ever Been Counseled For Unhealthy Alcohol Use? No [email or web address] Information not available 08/11/2022 Do You Use Protection During Sex? No [email or web address] Information not available 12/31/2024 Do You Use Your Seat Belt Or Car Seat Routinely? Yes [email or web address] Information not available 08/11/2022 Do You Have Smoke And Carbon Monoxide Detectors In Your Home? Yes [email or web address] Information not available 08/11/2022 How Much Tobacco Do You Smoke? No [email or web address] Information not available 12/31/2024 Do You Use Sunscreen Routinely? Yes Information not available 08/11/2022 Has Tobacco Cessation Counseling Been Provided? No [email or web address] Information not available 08/11/2022 Do You Have Difficulty Walking Or Climbing Stairs? No [email or web address] Information not available 08/11/2022 Sex: Unknown Functional Status Question Answer Note LastModified by Organizat ion Details LastModified Time Do you use any illicit or recreational drugs? No [email or web address] Information not available 08/11/2022 Do you or have you ever used any other forms of tobacco or nicotine? No [email or web address] Information not available 08/11/2022 What is your level of alcohol consumption? None [email or web address] Information not available 12/31/2024 Are you able to walk independently without assistance or assistive devices? YESWOREST [email or web address] Information not available 08/11/2022 Are you able to care for yourself independently? 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 No [email or web address] Information not available 08/11/2022 What is your exercise level? Occasional [email or web address] Information not available 08/11/2022 Mental Status Question Answer Note LastModified by Organization D etails LastModified Time Do you feel stressed (tense, restless, nervous, or anxious, or unable to sleep at night)? [id number] [email or web address] Information not available 12/31/2024 Family History Relationship Description Onset Age of this Age Resolved Age Notes LastModified by Organization Details LastModified Time Mother Asthma Not available 0 07/15/2021 14:39:07 Mother Hypertensive disorder Not available 2021 14:39:13 Mother Anemia Not available 0 07/15/2021 14:39:22 Father Anemia [email or web address] Not available 0 07/15/2021 14:39:22 Maternal Grandmother Hypertensive disorder [email or web address] Not available 2021 14:39:30 Paternal Grandmother Hypertensive disorder [email or web address] Not available 2021 14:39:46 Maternal Aunt Hypertensive disorder [email or web address] Not available 2021 14:39:56 Medical History Condition Response Other Y Blood Transfusion N Dermatologic Disorders Y Gestational Diabetes N Anxiety Disorder Y Autoimmune disease N Arthritis N Polyps N Infertility N Acid Reflux (GERD) Y Cancer N Varicosities N Stroke N Neurologic/Epilepsy N Fibromyalgia N Headaches Y Kidney Disease N Heart Problems N Kidney or Bladder Problems N Eating Disorder N Art (IVF or FET) N Hepatitis/Liver Disease N No Past Medical History N Urinary Tract Infection N Asthma Y Trauma/Violence N Thrombophilias N Allergies (Food, seasonal, environmental ) Y Breast Cancer N Drug/Latex Allergies/Reactions Y Lung Disease N Defects or Inherited Disease N Breast Problem N Hematologic disorders N Anesthesia Complications N History of STI N Deep Vein Thrombosis N Polycystic ovary syndrome N History of abnormal pap N Endometriosis N High Cholesterol N Thyroid Problems N GI Problems Y Anemia Y Psychiatric Illness N Ovarian Cancer N Diabetes N Pulmonary (TB, Asthma) N Eczema N Abuse/Domestic Violence N Depression/ depression Y Heart Disease N Pre-Eclampsia N Hypertension Y Osteoporosis N Gynecological History Statement/Question Response Date of Last Mammogram 04/07/2024 Flow Moderate Date of LMP 10/15/2024 N Was last menstrual period normal N STIs/STDs N Date of Last Colonoscopy 06/16/2023 Desired Control Method None Abnormal Pap N On BCP's at Conception? N HPV Vaccine N Duration of Flow (days) 5 Current Control Method None Age at First Child 22 Are cycles usually normal Y Sexually Active? Y Menses Monthly N Date of DEXA bone scan Age of first menstrual cycle 14 Date of Last Pap Smear 04/03/2024 Sexual Problems? N LMP Approximate 06/16/2023 N Obstetrics History GPAL:G 3 P 3 0 0 3 Type Value Full Term 3 Living 3 Total 3 Past Encounters Encounter ID Performer Location Encounter Start Date Encounter Closed Date Diagnosis/Indication Diagnosis SNOMED-CT Code Diagnosis ICD10 Code Diagnosis IMO Codes [facility] [id number] [address] [address] 07/16/2021 10:30:35 07/16/2021 11:09:22 Gynecologic examination 36010659 Z01.419 Z11.51 Suggested Calcium with Vitamin D 1200-1500m g daily. Patient advised to get an annual flu shot in the fall and she could obtain at [facility] or [facility] clinic. Also to obtain TDap vaccinatio n if you have not had one in the last 10 years. Recommend yearly mammograms . Encouraged monthly self breast exams. Encourage safe sexual practices, to use condoms and limit partners if not already in a monogamous relationsh ip. Engage in daily exercise of low impact aerobic exercise 45-60 minutes 4-5 times weekly. Avoid tobacco and illicit drugs as well as using moderation with alcohol intake less than 1-2 8 oz beverages daily. This lifestyle behavior pattern will lead to less health conditions and longer life span. If BMI greater than 25 weight watchers or dietary consult advised. All questions have been answered. Patient appears to understand informatio n, but if you have any questions please call or respond to this email. Elevated blood-pressure reading without diagnosis of hypertension 845244230 R03.0 No history of hypertensi on. Normal at pcp 1 month ago. Will spot check and get in with pcp if ever over 140/90 (either number). Discussed diet and exercise. [id number] Kylee Polo CNM [place] [address],[facility] [place] [address] 08/11/2022 16:34:09 08/11/2022 17:00:11 Gynecologic examination 31537681 Z01.419 Screening mammography 24 955420 Z12.31 Pain of hip region 61881 002 M25.559 Pain in pelvis 33968017 R10.2 [id number] Jonathan Lara MD [place] [address],[place] [address] 08/13/2022 10:26:40 08/13/2022 11:14:46 Pain in pelvis 40874934 R10.2 [id number] GLO Koch [place] [address],[place] [address] 04/03/2024 11:24:37 04/03/2024 17:00:42 Gynecologic examination 32395485 Z01.419 WWEBC - declinedpa p updatedSTI screen declinedma mmogram order given Take Calcium with Vitamin D daily.Do monthly self breast exams.It is advised to get annual flu shot in the fall and she could obtain at [facility] or [facility] care clinic. If you haven't received the Tdap vaccine in the last 10 years you should obtain one as well.Have mammogram yearly.Eng age in regular exercise. Avoid tobacco and illicit drugs. This lifestyle behavior pattern will lead to less health conditions and longer life span. If BMI greater than 25 dietary consult advised.Qu estions have been answered. Patient appears to understand instructio ns, but if you have any further questions call or respond to this email Screening for malignant neoplasm of breast 844794051 Z12.39 Abnormal u terine bleeding 0322683649 9100 N93.9 Discussed AUB, recommende d labs and updated pelvic u/sMD f/u scheduled, precaution s discussed Time spent in visit is a total of 35 mins with at least 50% of visit consisting of counseling and review of plan of care. Pain in pelvis 88344831 R10.2 [id number] Jonathan Lara MD [place] [address],[place] [address] 04/04/2024 14:22:38 04/04/2024 15:09:39 Abnormal uterine bleeding 5351586197 9100 N93.9 R10.2 [id number] GLO Koch [place] [address],[place] [address] 12/31/2024 12:12:07 12/31/2024 14:28:00 Irregular periods 21434249 N92.6 08627 UPT (-)updated labs and pelvic u/s orderedwil l f/u with MD to review given fibroids and possible polyp noted on u/s done 04/08quest ions answered, precaution s discussed Time spent in visit is a total of 30 mins with at least 50% of visit consisting of counseling and review of plan of care. Postcoital bleeding 4888 0000 N93.0 02011 [id number] Jonathan Lara MD [place] [address],[place] [address] 01/03/2025 12:18:50 01/03/2025 13:22:39 Irregular periods 22961501 N92.6 N93.0 85601 [id number] Jonathan Lara MD [place] [address],[place] [address] 01/17/2025 10:55:47 01/17/2025 12:22:58 Female hirsutism 12688145 L68.0 25746 Mass of ovary 330055686 N83.8 983396 Endometrial polyp 565656 9347 N84.0 88695 Menorrhagia 607435060 N9 2.0 [id number] this patient is a 44 old female with menorrhagi a, enlarged vascular ovary, endometria l polyp, hirsutism, PCOS. Myomas. We discussed each of these issues. We discussed heavy vaginal bleeding treatments , etiology, natural history. We discussed endometria l polyps. We discussed detail on hirsutism and PCOS. We discussed fibroids in detail as well. I spent over 30 minutes on the patient's care in total. We agreed to move forward with hysterosco py with polypectom y and endometria l ablation. Laparoscop ic bilateral salpingect [place] and right oophorecto my. The patient understand s the procedure. The procedure was described to the patient in great detail. the patient also understand s the risks. The risks were also explained in detail. She understand s that injuries May occur during surgery. She understand s these injuries can result in hospitaliz ation, more surgery, and severe illness. She understand s there is risk of hemorrhage and infection. Health Concerns Section Related Observation LastModified by Organization Detai ls LastModified Time None Recorded Concern Status LastModified by Organization Details LastModified Time None Recorded Advance Directives Directive None Recorded Payers Insurance Date Sequence Insurance Name Policy Number Policy Buckner Covered Member ID Buckner Member ID Guarantor Name 02/18/2025 1 [facility] ([facility] [id number] Leila Bradford [id number] Leila Dungfili Notes Date Note Type Note Provider Name and Address Organization Details Recorded Time 024 text/ht ml Annual GYNReported by PatientGenitourinary symptomsFor menstrual cycle, patient reportsmenorrhagiaandbleeding lasts more than 7 days. For urinary symptoms, patient reportsno hematuriaandno incontinence. For vulva, patient reportsno genital lesion. For vagina, patient reportsnormal vaginal discharge.Breast symptomsFor breast, patient reportsno breast pain,no breast lump, andno nipple discharge.ContraceptionFor current contraception, (withdrawal).Endocrine symptomsFor sexual complaints, patient reportsno sexual complaints,no pain during intercourse, andnormal libido. For menopausal symptoms, patient reportsno menopausal symptomsandnormal vaginal lubrication.Psychological symptomsFor psychological symptoms, patient reportsno depression,no anxiety, andno pmdd.Preventative measuresFor preventive measures, patient reportsencourage self breast examination,encourage regular exercise,encourage no tobacco use, andencourage regular mammograms starting age 40.43yo WWEBC - withdrawallast pap 07/2022 : nilm, HPV (-) periods lasting 7 days, heavy, often requiring double protectionepisodes of IMBsymptoms present for 6+ monthsright sided pelvic pain on and off, cramping neg n/v/fneg flu-like symptomsneg d/c GLO Koch [address], [place], [address], [facility] 04/03/2024 15:51:32 025 text/ht ml 44yo [id number] today for irregular periodsLMP 10/2024. Previous to this periods have been heavy/painful, lasting 6-7 days. Has episodes of IMB and bleeding with IC. Pelvic u/s done 03/2024 showed fibroids and possible polyp - she was unable to attend her f/u appt for this. Last pap 03/2024 : nilm, HPV (-)SA with male partner, BC not practiced GLO Koch [address], [place], [address], [facility] 12/31/2024 14:05:43 025 text/ht ml this patient is a 44 old female with menorrhagia, enlarged vascular ovary, endometrial polyp, hirsutism, PCOS. Myomas. We discussed each of these issues. We discussed heavy vaginal bleeding treatments, etiology, natural history. We discussed endometrial polyps. We discussed detail on hirsutism and PCOS. We discussed fibroids in detail as well. I spent over 30 minutes on the patient's care in total. We agreed to move forward with hysteroscopy with polypectomy and endometrial ablation. Laparoscopic bilateral salpingectomy and right oophorectomy. The patient understands the procedure. The procedure was described to the patient in great detail. the patient also understands the risks. The risks were also explained in detail. She understands that injuries May occur during surgery. She understands these injuries can result in hospitalization, more surgery, and severe illness. She understands there is risk of hemorrhage and infection. Jonathan Lara MD [address], [place], [address], [facility] 01/17/2025 12:15:23 OBGyn Episode Ob Episode Information Episode Created Date Number of Fetuses Patient Bloodtype Patient rh Status Prepregnancy Weight lbs Domestic Partner Domestic Partner Phone Father Name Fruit Farmworker Status 07/16/19 22 1 CLOSED Fetus Data First Name Last Name Admitted to NICU Weight (g) Sex Living Outcome Pediatric Complications Fetus ID Race Codes Race Delivery Type 3713.55 7704 F Full Term [id number] Vaginal Delivery Cristopher Calculation Initial Cristopher Date Initial Exam Date Initial Exam Provider Initial Ultrasound Date Last Menstrual Period Date Ultra Sound Weeks Gestation 0 Eighteen To Twenty Week Cristopher Update Ultra Sound Date Fundal Height At Umbil Quickening Date Ultra Sound Latest Weeks Gestation Final Cristopher Confirmed By Final Cristopher Confirmed Date Final Cristopher Date Ultra Sound Latest Days Gestation 0 0 Menstrual History Last Menstrual Date Menses Monthly On Bcp Conception Prior Menses Frequency Hcg Plus Date Menarche Onset Age Delivery Information Delivery Date Delivery Type Labor Anesthesia Weeks Gestation Incision Type Labor Labor Length Hrs Delivered By Post Complications Tubal Sterilization Discharge Date Comments 9 Discharge Information Feeding Method Contraceptive Method Maternal HG B and HCT Levels Ob Episode Information Episode Created Date Number of Fetuses Patient Bloodtype Patient rh Status Prepregnancy Weight lbs Domestic Partner Domestic Partner Phone Father Name Fruit Farmworker Status 07/16/19 22 1 CLOSED Fetus Data First Name Last Name Admitted to NICU Weight (g) Sex Living Outcome Pediatric Complications Fetus ID Race Codes Race Delivery Type 3543.46 0704 M Full Term [id number] Vaginal Delivery Cristopher Calculation Initial Cristopher Date Initial Exam Date Initial Exam Provider Initial Ultrasound Date Last Menstrual Period Date Ultra Sound Weeks Gestation 0 Eighteen To Twenty Week Cristopher Update Ultra Sound Date Fundal Height At Umbil Quickening Date Ultra Sound Latest Weeks Gestation Final Cristopher Confirmed By Final Cristopher Confirmed Date Final Cristopher Date Ultra Sound Latest Days Gestation 0 0 Menstrual History Last Menstrual Date Menses Monthly On Bcp Conception Prior Menses Frequency Hcg Plus Date Menarche Onset Age Delivery Information Delivery Date Delivery Type Labor Anesthesia Weeks Gestation Incision Type Labor Labor Length Hrs Delivered By Post Complications Tubal Sterilization Discharge Date Comments 3 Discharge Information Feeding Method Contraceptive Method Maternal HG B and HCT Levels Ob Episode Information Episode Created Date Number of Fetuses Patient Bloodtype Patient rh Status Prepregnancy Weight lbs Domestic Partner Domestic Partner Phone Father Name Fruit Farmworker Status 07/16/19 22 1 CLOSED Fetus Data First Name Last Name Admitted to NICU Weight (g) Sex Living Outcome Pediatric Complications Fetus ID Race Codes Race Delivery Type 2721.55 2 M Full Term [id number] Vaginal Delivery Cristopher Calculation Initial Cristopher Date Initial Exam Date Initial Exam Provider Initial Ultrasound Date Last Menstrual Period Date Ultra Sound Weeks Gestation 0 Eighteen To Twenty Week Cristopher Update Ultra Sound Date Fundal Height At Umbil Quickening Date Ultra Sound Latest Weeks Gestation Final Cristopher Confirmed By Final Cristopher Confirmed Date Final Cristopher Date Ultra Sound Latest Days Gestation 0 0 Menstrual History Last Menstrual Date Menses Monthly On Bcp Conception Prior Menses Frequency Hcg Plus Date Menarche Onset Age Delivery Information Delivery Date Delivery Type Labor Anesthesia Weeks Gestation Incision Type Labor Labor Length Hrs Delivered By Post Complications Tubal Sterilization Discharge Date Comments 7 Discharge Information Feeding Method Contraceptive Method Maternal HG B and HCT Levels
== END 2025-02-18 15:30 | disposition home or self-care (01) ==
LOC: ANHSURGERY 15:33
PROVIDERS: PCP Family Medicine; Visit Provider Obstetrics & Gynecology
DX: I10 Essential (primary) hypertension (principal); Z01.818 Encounter for other preprocedural examination; R94.31 Abnormal electrocardiogram [ECG] [EKG]
CPT/HCPCS: 93005

== ENCOUNTER 2025-02-20 01:30 | Day surgery (SDC) | payer BC, SELFPAY ==
[2025-02-18 10:14] VITALS: BMI 25.0
--- NOTE | 2025-02-18 10:23 | PC.NURSE ---
[facility] has started construction of its new state of the art ER which will open Spring 2026. With this, we anticipate parking may be a challenge for some our surgical patients and families. Parking spaces are limited but are available for all Surgical, obstetrics, and ER patients sharing this lot. If you arrive and find you are having a hard time finding a parking space, please note that we understand the challenges, please drive around the hospital and park near Hospital Entrance 1. When you enter this entrance, you can ask a volunteer to direct or take you back to the surgical waiting area to check in. We appreciate everyone?s understanding of these expected challenges while we build for your future. Report to the Outpatient Waiting Room, entrance under the green pavilion located off [address], at time _0730_ on date _[phone]_. Planned Procedure Time: _0930_.? Time changes happen often and if your time is changed the preop area will call you the afternoon before. - You and your visitor will be asked to self-screen and do not enter if you have any COVID symptoms. Please call surgeon if you need to reschedule. - A mask is optional within the hospital at this time. Patients may have clear liquids (water, carbonated beverages, clear teas, apple juice) until 3 hours prior to surgery with a maximum of 20 ounces. - No food from midnight until time of surgery and no smoking, or chewing tobacco (or any form of nicotine). No chewing gum, candy or mints. Take only the following medications with a SIP of water on the morning of surgery: ___Albuterol if needed.__ DO NOT STOP ANY OF YOUR OTHER PRESCRIPTION MEDICATIONS PRIOR TO SURGERY EXCEPT THE FOLLOWING Hold all vitamins and supplements for 3 days per anesthesiologist. Medications to discontinue per physician Date to take last dose___Stop now.__ Please no make-up, nail russian, hairspray, perfume, deodorant, or body powder the day of surgery.? No jewelry (including any body piercings) or valuables the day of surgery, leave them at home.? Please take a shower or bath the night before, or the morning of, surgery with an antibacterial soap.? Wear comfortable, loose fitting clothing.? - Jewelry must be removed prior to entering the operating room.? Rings and piercings that are not removed may be cut off. - The hospital will not accept responsibility for valuables.? - Please leave all valuables, including medications, at home the day of surgery. If you are going home after surgery, a licensed high lift driver must drive you home.? - NO public transportation without another adult if you receive anesthesia. - We recommend that an adult stay with you for 24 hours following discharge. - We also recommend that you do not drive, make important decision, drink alcoholic beverages, or take any drugs that were not prescribed by your health care provider for at least 24 hours after your discharge time. Follow any additional instructions given to you from your surgeon. Telephone instructions given to __Leila___and asked if any additional questions and then verbalized understanding. Patient advised to call surgeon office or pre surgery nurse liaison [phone] if any additional questions.
[2025-02-20] VITALS (7 sets, daily range): BP systolic 121–145; BP diastolic 73–84; PULSE 59–67; RESP 13–16; TEMP 36.1–37.2; O2SAT 96–100
--- OUTSIDE RECORDS SUMMARY | 2025-02-20 01:39 | XMS_ITS | Clinical Summary ---
Author Organization [facility] Address [address] [place] [address] Care Team Providers Care Android Framework Developer Name Role Phone Caio Kasper MD Primary Care Provider [phone] Source Comments [facility],non-owned Affiliates and Associated Physician Practices is amultiple site organization consisting of ambulatory clinics and hospital sitesin [place], [place], [place] and [place]. This disclosure is being madepursuant to the Care Everywhere program and may not contain all information available regarding this patient. Last updated 18.[facility] Allergies Active Allergy Reactions Criticality Noted Date [...] path normal. Chronic mild inflammation in rectum. 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 Gender Identity Not on file Sexual Orientation [...] 170.2 cm (5' 7) 07/11/2024 9:53 AM CHEMICAL MACHINE TENDER Body Mass Index 23.81 07/11/2024 9:53 AM CHEMICAL MACHINE TENDER Plan of Treatment Upcoming Encounters Date Type Department Care Team (Late st Contact Info) Description 05/28/2025 9:30 AM CHEMICAL MACHINE TENDER Office Visit [facility] - Dermatology [address] [place] [id number] Dave Carson MD [address] [place] [address] 05/29/2025 10:00 AM CHEMICAL MACHINE TENDER Office Visit [facility] - GI [address] [place] [address] Regis Thrasher MD [address] [place] [address] Health Maintenance Due Date Last Done Comments [...] LDL-C. Dante MARCH et al. ANGELLA. 2013;310(19): 0374-0990 (http://education.[employer].HereOrThere/faq/JVL175) CHOL/HDLC RATIO 3.5 <5.0 (calc) [facility] Non HDL Cholesterol 160(H) <130 mg/dL (calc) [facility] Comment: For patients with diabetes plus 1 major ASCVD risk factor, treating to a non-HDL-C goal of <100 mg/dL (LDL-C of <70 mg/dL) is considered a therapeutic option. Test Performed at: [facility] [address] JANESSA MCDONALD MD 01/10/2024 8:53 AM CDT 01/10/2024 8:53 AM CDT Indira Brown CYCLE COUNTER-FORENSIC PSYCHOLOGIST LAB - CHEMISTRY ORDERABLES Final Result Performing Organization Address City/State/[facility] Co de Phone Number [address] [address] from Last 3 Months or Most Recently Relevant to Health Maintenance Insurance [facility] Advance Directives Documents on File Type Date Recorded Patient Section Leader Expl anation Adv Directive/Living Will/POA 04/28/2010 10:47 PM * Full Code (Latest Code Status on File) Date Activated Date Inactivated Comments 07/17/2008 9:44 PM 07/21/2008 3:44 AM Care Teams Android Framework Developer Relationship Specialty Start Date End Date Caio Kasper MD [address] [place] [address] PCP - General Family Medicine 08/29/19
[2025-02-20] MEDS: LACTATED RINGERS 1,000 ML 30 ML IV CONT ×2 (08:00→09:55)
--- NOTE | 2025-02-20 08:07 | PM.IMHP ---
H&P: HPI History of Present Illness Date/Time: 02/20/25 08:07 Chief Complaint: Menorrhagia Narrative: This patient is a 44-year-old female with menorrhagia, enlarged vascular ovary, endometrial polyp, hirsutism, PCOS. Myomas.?We agreed to move forward with hysteroscopy with polypectomy and endometrial ablation. Laparoscopic bilateral salpingectomy and right oophorectomy. She understands risks, benefits, and alternatives. She has completed informed consent process is ready to proceed. The patient understands the details of the procedure. The procedure has been explained in detail. She understands the risks. She understands that injuries may occur that result in hospitalization, more surgery, and severe illness. She understands risk of hemorrhage and infection. She denies any chest pain or shortness of breath. She denies any nausea, vomiting, fever, chills. Review of Systems Review of Systems: All systems reviewed & are unremarkable except as noted in HPI and below Constitutional: Constitutional: Denies chills, Denies fatigue, Denies fever(s) and Denies weakness Eyes: Eyes: Denies blurry vision, Denies change in vision, Denies loss of peripheral vision, Denies loss of vision, Denies other visual disturbances and Denies eye pain ENT: Denies vertigo, Denies dizziness, Denies hearing loss, Denies mouth pain, Denies nasal obstruction, Denies neck mass and Denies neck pain Cardiovascular: Cardiovascular: Denies chest pain, Denies diaphoresis, Denies syncope, Denies leg edema and Denies dyspnea Respiratory: Respiratory: Denies chest congestion, Denies cough, Denies hemoptysis, Denies dyspnea and Denies wheezing Gastrointestinal: Gastrointestinal: Denies abdominal pain, Denies constipation, Denies diarrhea, Denies nausea and Denies vomiting Genitourinary: Genitourinary: Denies hematuria, Denies change in libido, Denies nocturia, Denies genital lesions, Denies flank pain and Denies urinary urgency Musculoskeletal: Musculoskeletal: Denies abnormal gait, Denies back pain, Denies myalgias, Denies arthralgias, Denies joint swelling, Denies muscle weakness and Denies neck pain Integumentary/Breasts: Skin/Breast: Denies swelling, Denies breast pain, Denies breast mass, Denies dry skin, Denies nipple discharge, Denies unusual bruising and Denies jaundice Neurologic: Denies Neuro-related abnormal movements, Denies Abnormal speech present, Denies abnormal gait, Denies behavioral changes, Denies confusion, Denies vertigo, Denies dizziness, Denies syncope, Denies loss of vision, Denies memory loss, Denies convulsions and Denies weakness Psychiatric: Psychiatric: Denies abnormal sleep pattern, Denies behavioral changes, Denies change in libido, Denies confusion, Denies depression, Denies anhedonia and Denies memory loss Endocrine: Endocrine: Reports no additional endocrine complaints, Denies change in libido and Denies fatigue Hematologic/Lymphatic: Hematologic/Lymphatic: Reports no additional hematologic/lymphatic complaints Allergic/Immunologic: Allergic/Immunologic: Reports no additional allergic/immunologic complaints and Denies wheezing PMFSH Past Medical History Medical History (Updated 02/20/25 @ 08:10 by Jonathan Lara MD) Essential hypertension Overweight (BMI 25.0-29.9) COVID-19 (03/30/22) vaccinated and mild symptoms Breast cancer screening by mammogram normal mammogram 04/07/2024. Acute bronchitis Elevated liver enzymes AST 39, ALT 56 on 05/21/2022. AST 12, ALT 12 on 06/30/2022. AST 16, ALT 13 on 06/11/2023. Restless legs syndrome iron 76 with 18% saturation and ferritin 16 with goal greater than 75 on 05/21/2022. Hyperlipidemia LDL goal <130 total cholesterol 269 with HDL excellent at 71, triglycerides 61, LDL 183 on 05/21/2022. Cholesterol 230, HDL 78, triglycerides 62, LDL 137 with ratio of 2.9 on 06/11/2023. Chronic low back pain with right-sided sciatica (~11/2021) Cat bite of left hand with infection Chronic eustachian tube dysfunction Otalgia of left ear (11/09/21) Otitis media Bilateral chronic knee pain BMI 24.0-24.9, adult Exposure to COVID-19 virus (~05/31/21) children with COVID. COVID test on 06/02/2021 was negative BMI 22.0-22.9, adult Benign paroxysmal positional vertigo due to bilateral vestibular disorder Osteoarthritis of multiple joints Gastro-esophageal reflux disease without esophagitis EGD June, with esophagitis. Iron deficiency anemia, unspecified (~07/31/19) iron 37 with 8% saturation with hemoglobin 12.2 on 07/31/2019. Hemoglobin 10.5 on 03/15/2022. Hemoglobin 12.9 with iron 76 with 18% saturation and ferritin 16 with vitamin B12 619 on 05/21/2022. Hemoglobin 8.8, hematocrit 32.3, platelets 663 with MCV 76 on 06/11/2023. Mild intermittent asthma in adult without complication BMI 23.0-23.9, adult Nut allergy Allergy to soy protein History of migraine headaches Seasonal allergies Ulcerative colitis (~2007) panulcerative colitis diagnosed in 2007 and followed by GI at [facility]. sedimentation rate of 6 with CRP 1.6 . colonoscopy June, stable. CRP 0.8 on 06/11/2023. Surgical History Surgical History Hx of colonoscopy May 2019 Family History Family History Mother Hypertension Father Ulcerative colitis Liver failure Grandparent Hypertension Grandparent Heart failure Grandparent Diabetes mellitus Hypertension Grandparent Kidney disease Social History Social History Social History: Surrogate medical decision maker: Kev Bradford, spouse. Code status: Full code. Smoking status: Never smoker Alcohol intake: never Substance use: current Substance use type: marijuana Other substance usage details: Medical cannabis daily Lack of Transportation: No Lack of Food: Never True Current Housing: I Have Housing Concerned About Future Housing: No Difficulty Paying Gas/Electric Bills: No Difficulty Paying for Meds: No Currently Unemployed: No Education: High School Diploma/GED Difficulty w/ Childcare or Family Care: No Living arrangements: with family Additional living arrangements comments: Lives in [place] with and 3 children. 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 Spiritual care concerns: No Meds Home Medications and Allergies Home Medications ?Medication ?Instructions ?Recorded ?Confirmed ?Type cannabis #1 ea 02/13/20 02/18/25 History ferrous sulfate 325 mg (65 mg 325 mg PO DAILY 02/13/20 02/18/25 History iron) tablet albuterol sulfate 90 mcg/actuation 2 inh inhalation Q6H PRN shortness 03/30/21 02/18/25 Rx breath activated powder inhaler of breath or wheezing #1 ea [id number]-Lb-dkxq-minerals 27 1 tablet PO DAILY 03/15/22 02/18/25 History mg-0.4 mg tablet fexofenadine 180 mg tablet 180 mg PO DAILY PRN Allergy 05/24/22 02/18/25 History (Idania Allergy) famotidine 20 mg tablet 20 mg PO BID #60 tabs 12/25/24 02/18/25 Rx metoprolol succinate 50 mg 50 mg PO DAILY #30 tabs 12/25/24 02/18/25 Rx tablet,extended release 24 hr risankizumab-rzaa 180 mg/1.2 mL 180 mg subcut . Q 8 week 12/25/24 02/18/25 History (150 mg/mL) subcut wearable injector (Bobyrizi) spironolactone 100 mg tablet 100 mg PO DAILY 02/18/25 02/18/25 History Allergies Allergy/AdvReac Type Severity Reaction Status Date / Time peanut Allergy Mild Anaphylaxis Verified 02/18/25 10:11 NSAIDS (Non-Steroidal Allergy Unknown Verified 02/18/25 10:11 Anti-Inflamma [place] Allergy Mild Anaphylaxis Uncoded 03/15/22 16:05 [place] Nut Allergy Mild Anaphylaxis Uncoded 03/15/22 16:05 SOY Allergy Mild Anaphylaxis Uncoded 03/15/22 16:05 [place] Allergy Mild Anaphylaxis Uncoded 03/15/22 16:05 Exam Const: General: cooperative, healthy appearing, comfortable and no acute distress Orientation/consciousness: oriented to person, oriented to place and oriented to time HENMT: Head: normal to inspection Ears: external ears normal Face/Nose/Sinus: Normal external nose present and normal facial exam Face and sinus: normal facial exam Eyes: General: appearance normal, both eyes and all related structures Neck: Neck: normal visual inspection, trachea midline and supple Resp: Auscultation: clear to auscultation bilaterally, no crackles, no rales, no rhonchi and no wheezes Cardio: Rate: regular rate Rhythm: regular rhythm Heart sounds: no click, no murmurs and no rubs GI: GI Palp: No abdominal tenderness, No Soft to palpation, No Tenderness to palpation present (GI) and No Palpable mass present Auscultation: normal bowel sounds Skin: General skin exam: normal color and no rashes or lesions noted Neuro: General: oriented to person, oriented to place and oriented to time Extrem: General: normal to inspection, no joint enlargement, no clubbing, cyanosis or edema, no pedal edema and no calf tenderness Psych: Appearance: grossly normal Mental Status: mental status grossly normal Speech and movement: Normal speech and movement present Assessment and Plan Assessment and plan (1) Menorrhagia: Code(s): N92.0 - Excessive and frequent menstruation with regular cycle Status: Acute (2) Abnormal ultrasound of ovary: Code(s): R93.5 - Abnormal findings on diagnostic imaging of other abdominal regions, including retroperitoneum Status: Acute Plan This patient is a 44-year-old female with menorrhagia, enlarged vascular ovary, endometrial polyp, hirsutism, PCOS. Myomas.?We agreed to move forward with hysteroscopy with polypectomy and endometrial ablation. Laparoscopic bilateral salpingectomy and right oophorectomy. She understands risks, benefits, and alternatives. She has completed informed consent process is ready to proceed
--- NOTE | 2025-02-20 08:10 | WPDHPUPDATE1 ---
History and Physical Update Update Date/Time: 02/20/25 08:10 History and Physical has been reviewed, including an updated exam of the patient. There are NO changes in the patient's condition. Risks, benefits, and alternatives have been discussed and questions answered. Patient agrees to proceed with procedure.
--- NOTE | 2025-02-20 08:21 | WPDANESEPPF ---
Anes - Initial Pre Proc Eval Procedure: Operation Date: 02/20/25 09:30 Proposed Procedures p Hysteroscopy with Endometrial Ablation, Biopsy of Endometrium and/or Polypectomy, Laparoscopic Bilateral Salpingectomy, Right Oophorectomy - Jonathan Lara MD Date/Time: 02/20/25 08:21 Surgeon: Jonathan Lara MD Pre Op Diagnosis: menorrhagia, endometrial polyp, right ovarian mass Patient Data Age: 44 Gender: F Height: 1.65 m Weight: 68.2 kg Allergies Allergy/AdvReac Type Severity Reaction Status Date / Time avocado Allergy Mild Anaphylaxis Verified 02/20/25 08:20 peanut Allergy Mild Anaphylaxis Verified 02/20/25 08:19 NSAIDS (Non-Steroidal AdvReac Intermediate Other Verified 02/20/25 08:20 Anti-Inflamma [place] Allergy Mild Anaphylaxis Uncoded 03/15/22 16:05 [place] Nut Allergy Mild Anaphylaxis Uncoded 03/15/22 16:05 SOY Allergy Mild Anaphylaxis Uncoded 03/15/22 16:05 [place] Allergy Mild Anaphylaxis Uncoded 03/15/22 16:05 Home Medications ?Medication ?Instructions ?Recorded ?Confirmed ?Type cannabis #1 ea 02/13/20 02/18/25 History ferrous sulfate 325 mg (65 mg 325 mg PO DAILY 02/13/20 02/18/25 History iron) tablet albuterol sulfate 90 mcg/actuation 2 inh inhalation Q6H PRN shortness 03/30/21 02/18/25 Rx breath activated powder inhaler of breath or wheezing #1 ea hyljrgcolgbc-Nx-ojef-minerals 27 1 tablet PO DAILY 03/15/22 02/18/25 History mg-0.4 mg tablet fexofenadine 180 mg tablet 180 mg PO DAILY PRN Allergy 05/24/22 02/18/25 History (Idania Allergy) famotidine 20 mg tablet 20 mg PO BID #60 tabs 12/25/24 02/18/25 Rx metoprolol succinate 50 mg 50 mg PO DAILY #30 tabs 12/25/24 02/18/25 Rx tablet,extended release 24 hr risankizumab-rzaa 180 mg/1.2 mL 180 mg subcut . Q 8 week 12/25/24 02/18/25 History (150 mg/mL) subcut wearable injector (Bobyrizi) spironolactone 100 mg tablet 100 mg PO DAILY 02/18/25 02/18/25 History Patient hx anesthesia problems: none Family hx anesthesia problems: none Results Review: All pre-operative results and documents have been reviewed as part of the pre-operative evaluation. [facility] Past Medical History Medical History Essential hypertension Overweight (BMI 25.0-29.9) COVID-19 (03/30/22) vaccinated and mild symptoms Breast cancer screening by mammogram normal mammogram 04/07/2024. Acute bronchitis Elevated liver enzymes AST 39, ALT 56 on 05/21/2022. AST 12, ALT 12 on 06/30/2022. AST 16, ALT 13 on 06/11/2023. Restless legs syndrome iron 76 with 18% saturation and ferritin 16 with goal greater than 75 on 05/21/2022. Hyperlipidemia LDL goal <130 total cholesterol 269 with HDL excellent at 71, triglycerides 61, LDL 183 on 05/21/2022. Cholesterol 230, HDL 78, triglycerides 62, LDL 137 with ratio of 2.9 on 06/11/2023. Chronic low back pain with right-sided sciatica (~11/2021) Cat bite of left hand with infection Chronic eustachian tube dysfunction Otalgia of left ear (11/09/21) Otitis media Bilateral chronic knee pain BMI 24.0-24.9, adult Exposure to COVID-19 virus (~05/31/21) children with COVID. COVID test on 06/02/2021 was negative BMI 22.0-22.9, adult Benign paroxysmal positional vertigo due to bilateral vestibular disorder Osteoarthritis of multiple joints Gastro-esophageal reflux disease without esophagitis EGD June, with esophagitis. Iron deficiency anemia, unspecified (~07/31/19) iron 37 with 8% saturation with hemoglobin 12.2 on 07/31/2019. Hemoglobin 10.5 on 03/15/2022. Hemoglobin 12.9 with iron 76 with 18% saturation and ferritin 16 with vitamin B12 619 on 05/21/2022. Hemoglobin 8.8, hematocrit 32.3, platelets 663 with MCV 76 on 06/11/2023. Mild intermittent asthma in adult without complication BMI 23.0-23.9, adult Nut allergy Allergy to soy protein History of migraine headaches Seasonal allergies Ulcerative colitis (~2007) panulcerative colitis diagnosed in 2007 and followed by GI at [facility]. sedimentation rate of 6 with CRP 1.6 . colonoscopy June, stable. CRP 0.8 on 06/11/2023. Surgical History Surgical History Hx of colonoscopy May 2019 Family History Family History Mother Hypertension Father Ulcerative colitis Liver failure Grandparent Hypertension Grandparent Heart failure Grandparent Diabetes mellitus Hypertension Grandparent Kidney disease Social History Social History Social History: Surrogate medical decision maker: Kev Bradford, spouse. Code status: Full code. Smoking status: Never smoker Alcohol intake: never Substance use: current Substance use type: marijuana Other substance usage details: Medical cannabis daily Lack of Transportation: No Lack of Food: Never True Current Housing: I Have Housing Concerned About Future Housing: No Difficulty Paying Gas/Electric Bills: No Difficulty Paying for Meds: No Currently Unemployed: No Education: High School Diploma/GED Difficulty w/ Childcare or Family Care: No Living arrangements: with family Additional living arrangements comments: Lives in [place] with and 3 children. 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 Spiritual care concerns: No Anes - Eval Final PreProcedure Day of Procedure 02/20/25 08:21 Patient weight: normal Heart: regular rate and rhythm Lungs: clear to auscultation Airway: Mallampati scale class II Neurological: alert and oriented Last oral intake: >/= 8 hours ASA classification: III Emergent: no Anesthetic plan: proceed Anesthesia type and monitoring: general ETT and standard monitoring Results Review: All pre-operative results and documents have been reviewed as part of the pre-operative evaluation. Informed Consent: The patient's anesthetic plan and its attendant risks and benefits were discussed with the patient/family/POA. Questions were solicited and answers provided to the satisfaction of the patient/family/POA.
[2025-02-20] MEDS: SCOPOLAMINE 1 MG PATCH 1 PATCH TRANSDERM (08:24)
[2025-02-20] MEDS: ACETAMINOPHEN 500 MG TABLET 1000 MG PO (08:25)
[2025-02-20 08:30] LABS: BEDSIDEPREGUCG Negative (Negative)
--- NOTE | 2025-02-20 09:29 | S_PTH ---
PATIENT: Leila Bradford LOC: [facility] U#:[id number] AGE/SX: 44/F ROOM: RE02/20/[address]: Jonathan Lara MD : 1980 BED: DIS: 02/20/2025 SPEC #: [id number] RECD: 02/20/25 10:39 STATUS: AUBREE REQ #: [id number] JERRELL: 02/20/25 09:[address]: Jonathan Lara DEPT: [facility] Surgical RECD BY: Margarita Lara ENTERED: 02/20/25 10:40 SP TYPE: Surgical OTHR DR: Caio Kasper MD Tissues: A - Ovary B - Endometrial Curettings C - Pelvic Washing Procedures: Immunoperoxidase Hematoxylin and Eosin Stain Reticulum Stain Cell Block Gross and Microscopic Level 4 Calretinin Cytopathology Cytospin
--- NOTE | 2025-02-20 09:53 | SUR.OPER ---
Pelvic Washings given to [facility] Naty at 09:50; Naty gave specimen to Margarita at 09:53
--- NOTE | 2025-02-20 10:07 | P.OP_ITS ---
Procedure Note - Detailed Date of Procedure 02/20/25 Pre-op Diagnosis menorrhagia, endometrial polyp, right ovarian mass Post-op Diagnosis Same Procedure Performed Laparoscopic bilateral salpingectomy, right oophorectomy, and endometrial ablation and hysteroscopy. Surgeon Jonathan Lara MD Anesthesia General Indications Menorrhagia, female sterilization Findings Enlarged vascular right ovary, normal-appearing left fallopian tube. Enlarged heavy uterus. 12 cm. Normal vulva, vagina, cervix. Normal appearing endometrium. Description of Procedure Patient was taken the operating room. She has prepped draped in the dorsal lithotomy position after induction of general anesthesia. A 5 mm abdominal incision was made in left upper quadrant of the abdomen with scalpel. A 5 mm trocars inserted the intra-abdominal cavity under direct visualization of the scope. Pneumoperitoneum was achieved. A 5 mm periumbilical incision was made using a scalpel on the abdominal scan. A 5 mm trocar was inserted the intra- abdominal cavity under visualization of the scope. A 11 mm incision made left lower quadrant of the abdomen. A 11 mm trocar was inserted the intra-abdominal cavity and direct visualization of the scope. The bilateral fallopian tubes were removed. The paratubal tissue in the area of the uterus was grasped with the LigaSure cautery and transected after being cauterized. The paratubal tissue from the ovary to the uterine cornu was cauterized and transected with LigaSure cautery. This was all done in a bilateral fashion. The right ovary was removed. The infundibulopelvic ligament was cauterized and transected. The para ovarian tissue was cauterized transected with LigaSure cautery. Suspensory ligament the ovaries cauterized transected. The ovaries placed in endobag and taken out the left lower quadrant trocar site. The tube was transected at the area of the uterine cornua and the tubes was removed through the 5 mm trocar site. The pneumoperitoneum was reduced. The trocars were removed. The skin was closed with subcuticular 4 Monocryl and covered with Dermabond. Our attention was then turned to the endometrial ablation portion of the procedure. A speculum was placed in the vagina. The cervix was grasped with a tenaculum. The cervix was dilated to approximately 8 mm with Jiménez dilators. The hysteroscope was inserted. And the below findings were noted. All of the intrauterine surfaces were curettaged with a medium-size curette and the specimens were collected. Measurements of the cervix were taken using the uterine sound and the hysteroscope. The intrauterine cavity measurements were entered into the handpiece. The device was inserted into the intrauterine cavity and the array was expanded. The balloon cuff was inflated. When an adequate seal was formed the safety and energy cycles were initiated and completed. The array was collapsed, the balloon was deflated. The insert was withdrawn. The hysteroscope was reinserted and a well desiccated intrauterine cavity was observed. The patient was taken recovery room stable condition. Sponge lap and needle counts were correct x2. She tolerated the procedure well. Pathology Yes Complications No immediate complications Condition Stable Disposition PACU
[2025-02-20] MEDS: oxyCODONE HCL (*CRX) 5 MG TAB IR PO (10:56)
== END 2025-02-20 11:49 | disposition home or self-care (01) ==
PROVIDERS: PCP Family Medicine; Visit Provider Obstetrics & Gynecology
PROC: 0UDB8ZZ Extraction of Endometrium, Via Natural or Artificial Opening Endoscopic (ICD-10-PCS; CPT 58558; principal; 2025-02-20 09:30)
DX: R93.5 Abnormal findings on diagnostic imaging of other abdominal regions, including retroperitoneum (principal); D39.11 Neoplasm of uncertain behavior of right ovary; G89.18 Other acute postprocedural pain; I10 Essential (primary) hypertension; G25.81 Restless legs syndrome; E78.5 Hyperlipidemia, unspecified; K21.9 Gastro-esophageal reflux disease without esophagitis; E28.2 Polycystic ovarian syndrome; D50.9 Iron deficiency anemia, unspecified; J45.909 Unspecified asthma, uncomplicated; G89.29 Other chronic pain; M54.41 Lumbago with sciatica, right side; M25.562 Pain in left knee; M25.561 Pain in right knee; M15.9 Polyosteoarthritis, unspecified; F12.90 Cannabis use, unspecified, uncomplicated; Z79.51 Long term (current) use of inhaled steroids; Z87.19 Personal history of other diseases of the digestive system; Z82.49 Family history of ischemic heart disease and other diseases of the circulatory system
CPT/HCPCS: 58661; 58563; 88108; 88305; 88312; 88342; A9270; J1100; J1200; J2003; J2250; J2405; J2704; J3010; J7120